=== PATIENT | male | born 1935 | race African-American/Black ===

== ENCOUNTER 2016-06-04 18:03 | Inpatient (IN) | payer MEDICARE, BC ==
[~2016-06-04] VITALS: Ht 180.3 cm; Wt 81.2 kg
[~2016-06-04 18:03] MED LIST: AMIO100T4 PO; AMLO1TAB31 PO; ASPI-1035 PO; CARV3.1242 PO; CLOP75TA2 PO; EZET10TA PO; LIP40 PO; POTA10TA69 PO; WARF3TAB28 PO; hctz PO
[2016-06-04] MEDS ORDERED: MAGNESIUM/ALUMINUM HYDROXIDE/SIMETHICONE 30ML UDC PO PRN ×2 (19:15→20:45)
[2016-06-04] MEDS ORDERED: DIPHENHYDRAMINE 50MG/ML VIAL IV PRN (19:15)
[2016-06-04] MEDS ORDERED: ACETAMINOPHEN 325MG TABLET PO PRN (19:15)
[2016-06-04] MEDS ORDERED: ONDANSETRON HCL 4MG/2ML VIAL IV PRN (19:15)
[2016-06-04] MEDS ORDERED: THROAT LOZENGES-BENZOCAINE/MENTH/CETYLPYRD CL LOZENGES MM PRN (19:15)
[2016-06-04] MEDS ORDERED: VISCOUS LIDOCAINE 2% 15 ML UDC MM PRN (19:15)
[2016-06-04] MEDS ORDERED: IPRATROPIUM BROMIDE (0.02%) 0.5MG/2.5ML NEB HHN PRN (19:15)
[2016-06-04] MEDS ORDERED: LIDOCAINE HCL 20 MG/ML 100ML BOTTLE MM PRN (19:25)
[2016-06-04 19:45] VITALS: BP 112/64
[2016-06-04 20:21] VITALS: BP 112/64
[2016-06-04] MEDS: ATORVASTATIN CALCIUM 40MG TABLET PO SCH (20:39)
[2016-06-04] MEDS: IPRATROPIUM/ALBUTEROL 0.5-3(2.5)MG/3ML NEB HHN SCH (20:56)
[2016-06-04] MEDS ORDERED: FUROSEMIDE 40MG TABLET PO SCH (21:00)
[2016-06-05] MEDS: IPRATROPIUM/ALBUTEROL 0.5-3(2.5)MG/3ML NEB HHN SCH ×6 (00:35→21:15)
[2016-06-05 06:36] LABS: HEMATOCRIT. 34.8 % (42.0-52.0); HEMOGLOBIN. 11.5 g/dL (14.0-18.0); MEAN CORPUSCULAR HEMOGLOBIN 33.3 pg (28.0-32.0); MEAN CORPUSCULAR HGB CONC 33.2 g/dL (31.0-37.0); MEAN CORPUSCULAR VOLUME 100.4 fL (80.0-94.0); MEAN PLATELET VOLUME 8.4 fl (7.4-10.4); PLATELET 135 x1000/uL (130-400); RED BLOOD CELL COUNT 3.47 mill/uL (4.7-6.1); RED CELL DISTRIBUTION WIDTH 14.1 % (11.6-14.6)
[2016-06-05 07:07] LABS: DIFFERENTIAL COMMENT 1
[2016-06-05 07:19] LABS: ALANINE AMINOTRANSFERASE 28 IU/L (13-61); ALBUMIN 2.9 g/dL (3.4-5.0); ANION GAP 14; CALCIUM 8.3 mg/dL (8.5-10.1); CARBON DIOXIDE 30 mEq/L (21-32); CHLORIDE 100 mEq/L (98-107); INDEX HEMOLYSI 1 (1-3); INDEX ICTERIC 1 (1-4); INDEX LIPEMIC 1 (1-3); PREALBUMIN 15.7 mg/dL (20.0-40.0); UREA NITROGEN BLOOD 31 mg/dL (7-21)
[2016-06-05 07:27] LABS: eGFR 51 mL/min (>60)
[2016-06-05 07:57] VITALS: BP 109/76
[2016-06-05] MEDS: ENOXAPARIN 60MG/0.6ML SYR SUBCUT SCH (08:24)
[2016-06-05] MEDS: FUROSEMIDE 40MG TABLET PO SCH ×2 (08:25→21:39)
[2016-06-05] MEDS: DOCUSATE SODIUM 100MG CAPSULE PO SCH ×2 (08:25→17:25)
[2016-06-05] MEDS: EZETIMIBE 10MG TABLET PO SCH (08:25)
[2016-06-05] MEDS: CALCIUM CARBONATE 1250MG TABLET (500MG ELEMENTAL CALCIUM) PO SCH (08:25)
[2016-06-05] MEDS: ASPIRIN 81MG TABLET PO SCH (08:25)
[2016-06-05] MEDS: AMLODIPINE 5MG TABLET PO SCH (08:25)
[2016-06-05] MEDS: POTASSIUM CHLORIDE 20MEQ TABLET SR PO SCH (08:25)
[2016-06-05] MEDS: LOSARTAN POTASSIUM 25 MG TABLET PO SCH (08:25)
[2016-06-05] MEDS: AMIODARONE HCL 200 MG TABLET PO SCH (08:25)
[2016-06-05] MEDS ORDERED: DOCUSATE SODIUM 100MG CAPSULE PO SCH (09:00)
[2016-06-05 14:53] LABS: PLATELET ESTIMATE NORMAL
[2016-06-05] MEDS: GUAIFENESIN-DM 200MG-20MG/10ML UDC PO PRN (17:25)
[2016-06-05 20:00] VITALS: BP 114/64
[2016-06-05] MEDS: CARVEDILOL 6.25 MG TABLET PO SCH (21:00)
[2016-06-05] MEDS: ATORVASTATIN CALCIUM 40MG TABLET PO SCH (21:39)
[2016-06-06] MEDS: IPRATROPIUM/ALBUTEROL 0.5-3(2.5)MG/3ML NEB HHN SCH ×6 (00:54→20:56)
[2016-06-06 08:00] VITALS: BP 121/78
[2016-06-06] MEDS: AMIODARONE HCL 200 MG TABLET PO SCH (08:47)
[2016-06-06] MEDS: ASPIRIN 81MG TABLET PO SCH (08:47)
[2016-06-06] MEDS: CALCIUM CARBONATE 1250MG TABLET (500MG ELEMENTAL CALCIUM) PO SCH (08:47)
[2016-06-06] MEDS: LOSARTAN POTASSIUM 25 MG TABLET PO SCH (08:47)
[2016-06-06] MEDS: POTASSIUM CHLORIDE 20MEQ TABLET SR PO SCH (08:47)
[2016-06-06] MEDS: EZETIMIBE 10MG TABLET PO SCH (08:47)
[2016-06-06] MEDS: AMLODIPINE 5MG TABLET PO SCH (08:47)
[2016-06-06] MEDS: FUROSEMIDE 40MG TABLET PO SCH ×2 (08:47→20:39)
[2016-06-06] MEDS: ENOXAPARIN 60MG/0.6ML SYR SUBCUT SCH (08:47)
[2016-06-06] MEDS: DOCUSATE SODIUM 100MG CAPSULE PO SCH ×2 (08:47→17:49)
[2016-06-06] MEDS: CARVEDILOL 6.25 MG TABLET PO SCH ×2 (08:48→20:39)
[2016-06-06 20:00] VITALS: BP 114/62
[2016-06-06] MEDS: ATORVASTATIN CALCIUM 40MG TABLET PO SCH (20:39)
[2016-06-06] MEDS: GUAIFENESIN-DM 200MG-20MG/10ML UDC PO PRN (20:39)
[2016-06-07] MEDS: IPRATROPIUM/ALBUTEROL 0.5-3(2.5)MG/3ML NEB HHN SCH ×3 (00:13→21:08)
[2016-06-07 07:55] LABS: EOSINOPHILS % 1.3 % (0.0-5.0); HEMATOCRIT. 35.2 % (42.0-52.0); HEMOGLOBIN. 11.5 g/dL (14.0-18.0); LYMPHOCYTES % 13.7 % (20.0-50.0); MEAN CORPUSCULAR HGB CONC 32.8 g/dL (31.0-37.0); MEAN CORPUSCULAR VOLUME 100.6 fL (80.0-94.0); MEAN PLATELET VOLUME 8.8 fl (7.4-10.4); MONOCYTES % 17.7 % (2.0-8.0); NEUTROPHILS % 66.3 % (40.0-76.0); PLATELET 128 x1000/uL (130-400); RED CELL DISTRIBUTION WIDTH 14.1 % (11.6-14.6); WHITE BLOOD COUNT 4.2 x1000/uL (4.5-11.0)
[2016-06-07 07:57] LABS: DIFFERENTIAL COMMENT 1
[2016-06-07 08:00] VITALS: BP 127/81
[2016-06-07 08:30] LABS: FERRITIN 140 ng/mL (22-322)
[2016-06-07 08:32] LABS: CALCIUM 8.3 mg/dL (8.5-10.1); MAGNESIUM 2.2 mg/dL (1.8-2.4); PHOSPHORUS 3.4 mg/dL (2.5-4.9)
[2016-06-07 08:33] LABS: THYROID STIMULATING HORMONE 7.7 uIU/mL (0.36-3.74)
[2016-06-07] MEDS: CALCIUM CARBONATE 1250MG TABLET (500MG ELEMENTAL CALCIUM) PO SCH (09:20)
[2016-06-07] MEDS: FUROSEMIDE 40MG TABLET PO SCH ×2 (09:20→20:37)
[2016-06-07] MEDS: POTASSIUM CHLORIDE 20MEQ TABLET SR PO SCH (09:20)
[2016-06-07] MEDS: CARVEDILOL 6.25 MG TABLET PO SCH ×2 (09:20→20:37)
[2016-06-07] MEDS: ASPIRIN 81MG TABLET PO SCH (09:21)
[2016-06-07] MEDS: ENOXAPARIN 60MG/0.6ML SYR SUBCUT SCH (09:21)
[2016-06-07] MEDS: AMIODARONE HCL 200 MG TABLET PO SCH (09:21)
[2016-06-07] MEDS: AMLODIPINE 5MG TABLET PO SCH (09:21)
[2016-06-07] MEDS: EZETIMIBE 10MG TABLET PO SCH (09:21)
[2016-06-07] MEDS: DOCUSATE SODIUM 100MG CAPSULE PO SCH ×2 (09:21→17:34)
[2016-06-07] MEDS: LOSARTAN POTASSIUM 25 MG TABLET PO SCH (09:21)
[2016-06-07 09:45] LABS: INDEX HEMOLYSI 2 (1-3)
[2016-06-07 10:01] LABS: VITAMIN B12 SERUM 1156 pg/mL (211-911)
[2016-06-07 10:32] LABS: FOLIC ACID (FOLATE) SERUM > 20.00 ng/mL (>5.38)
[2016-06-07 20:00] VITALS: BP 109/62
[2016-06-07] MEDS: ATORVASTATIN CALCIUM 40MG TABLET PO SCH (20:37)
[2016-06-08] MEDS: IPRATROPIUM/ALBUTEROL 0.5-3(2.5)MG/3ML NEB HHN SCH ×6 (00:51→21:53)
[2016-06-08 08:00] VITALS: BP 109/70
[2016-06-08 08:52] LABS: T3 FREE 1.24 pg/ml (2.18-3.98); T4 FREE 1.34 ng/dL (0.76-1.46)
[2016-06-08] MEDS: CARVEDILOL 6.25 MG TABLET PO SCH ×2 (09:00→20:33)
[2016-06-08] MEDS: AMLODIPINE 5MG TABLET PO SCH (09:00)
[2016-06-08] MEDS: LOSARTAN POTASSIUM 25 MG TABLET PO SCH (09:00)
[2016-06-08] MEDS: DOCUSATE SODIUM 100MG CAPSULE PO SCH ×2 (09:11→17:59)
[2016-06-08] MEDS: POTASSIUM CHLORIDE 20MEQ TABLET SR PO SCH (09:11)
[2016-06-08] MEDS: FUROSEMIDE 40MG TABLET PO SCH ×2 (09:11→20:33)
[2016-06-08] MEDS: ASPIRIN 81MG TABLET PO SCH (09:12)
[2016-06-08] MEDS: CALCIUM CARBONATE 1250MG TABLET (500MG ELEMENTAL CALCIUM) PO SCH (09:12)
[2016-06-08] MEDS: ENOXAPARIN 60MG/0.6ML SYR SUBCUT SCH (09:12)
[2016-06-08] MEDS: AMIODARONE HCL 200 MG TABLET PO SCH (09:12)
[2016-06-08] MEDS: EZETIMIBE 10MG TABLET PO SCH (09:12)
[2016-06-08] MEDS: ATORVASTATIN CALCIUM 40MG TABLET PO SCH (20:33)
[2016-06-08 20:45] VITALS: BP 119/61
[2016-06-09] MEDS: IPRATROPIUM/ALBUTEROL 0.5-3(2.5)MG/3ML NEB HHN SCH ×6 (01:42→21:08)
[2016-06-09 06:39] LABS: HEMATOCRIT. 33.7 % (42.0-52.0); HEMOGLOBIN. 11.2 g/dL (14.0-18.0); MEAN CORPUSCULAR HEMOGLOBIN 33.1 pg (28.0-32.0); MEAN CORPUSCULAR HGB CONC 33.2 g/dL (31.0-37.0); MEAN CORPUSCULAR VOLUME 99.8 fL (80.0-94.0); PLATELET 166 x1000/uL (130-400); RED BLOOD CELL COUNT 3.38 mill/uL (4.7-6.1); RED CELL DISTRIBUTION WIDTH 13.7 % (11.6-14.6); WHITE BLOOD COUNT 4.5 x1000/uL (4.5-11.0)
[2016-06-09 07:05] LABS: CALCIUM 8.4 mg/dL (8.5-10.1)
[2016-06-09 07:08] LABS: DIFFERENTIAL COMMENT 1
[2016-06-09 08:00] VITALS: BP 123/76
[2016-06-09] MEDS: ASPIRIN 81MG TABLET PO SCH (08:12)
[2016-06-09] MEDS: CARVEDILOL 6.25 MG TABLET PO SCH ×2 (08:12→21:00)
[2016-06-09] MEDS: POTASSIUM CHLORIDE 20MEQ TABLET SR PO SCH (08:12)
[2016-06-09] MEDS: DOCUSATE SODIUM 100MG CAPSULE PO SCH ×2 (08:13→17:13)
[2016-06-09] MEDS: LOSARTAN POTASSIUM 25 MG TABLET PO SCH (08:13)
[2016-06-09] MEDS: FUROSEMIDE 40MG TABLET PO SCH ×2 (08:13→21:16)
[2016-06-09] MEDS: CALCIUM CARBONATE 1250MG TABLET (500MG ELEMENTAL CALCIUM) PO SCH (08:13)
[2016-06-09] MEDS: EZETIMIBE 10MG TABLET PO SCH (08:13)
[2016-06-09] MEDS: AMLODIPINE 5MG TABLET PO SCH (08:13)
[2016-06-09] MEDS: AMIODARONE HCL 200 MG TABLET PO SCH (08:16)
[2016-06-09] MEDS: ENOXAPARIN 60MG/0.6ML SYR SUBCUT SCH (08:26)
[2016-06-09 10:07] LABS: PLATELET ESTIMATE NORMAL
[2016-06-09] MEDS ORDERED: WARFARIN SODIUM 3MG TABLET PO SCH (18:00)
[2016-06-09 20:00] VITALS: BP 126/73
[2016-06-09] MEDS: ATORVASTATIN CALCIUM 40MG TABLET PO SCH (21:16)
[2016-06-10] MEDS: IPRATROPIUM/ALBUTEROL 0.5-3(2.5)MG/3ML NEB HHN SCH ×6 (01:29→20:20)
[2016-06-10 07:00] LABS: INR 1.3; PROTHROMBIN TIME 13.7 sec
[2016-06-10 07:06] LABS: HEMATOCRIT. 33.2 % (42.0-52.0); MEAN CORPUSCULAR HEMOGLOBIN 32.7 pg (28.0-32.0); MEAN CORPUSCULAR HGB CONC 33.2 g/dL (31.0-37.0); MEAN CORPUSCULAR VOLUME 98.6 fL (80.0-94.0); MEAN PLATELET VOLUME 8.2 fl (7.4-10.4); PLATELET 173 x1000/uL (130-400); RED BLOOD CELL COUNT 3.37 mill/uL (4.7-6.1); RED CELL DISTRIBUTION WIDTH 13.9 % (11.6-14.6); WHITE BLOOD COUNT 4.4 x1000/uL (4.5-11.0)
[2016-06-10 07:24] LABS: DIFFERENTIAL COMMENT 1
[2016-06-10 07:37] LABS: CALCIUM 8.6 mg/dL (8.5-10.1)
[2016-06-10 08:00] VITALS: BP 116/68
[2016-06-10] MEDS: AMLODIPINE 5MG TABLET PO SCH (08:17)
[2016-06-10] MEDS: POTASSIUM CHLORIDE 20MEQ TABLET SR PO SCH (08:17)
[2016-06-10] MEDS: DOCUSATE SODIUM 100MG CAPSULE PO SCH ×2 (08:17→17:00)
[2016-06-10] MEDS: CARVEDILOL 6.25 MG TABLET PO SCH ×2 (08:18→21:34)
[2016-06-10] MEDS: EZETIMIBE 10MG TABLET PO SCH (08:18)
[2016-06-10] MEDS: AMIODARONE HCL 200 MG TABLET PO SCH (08:18)
[2016-06-10] MEDS: CALCIUM CARBONATE 1250MG TABLET (500MG ELEMENTAL CALCIUM) PO SCH (08:18)
[2016-06-10] MEDS: FUROSEMIDE 40MG TABLET PO SCH ×2 (08:18→21:33)
[2016-06-10] MEDS: ASPIRIN 81MG TABLET PO SCH (08:18)
[2016-06-10] MEDS: ENOXAPARIN 60MG/0.6ML SYR SUBCUT SCH (08:19)
[2016-06-10] MEDS: LOSARTAN POTASSIUM 25 MG TABLET PO SCH (08:19)
[2016-06-10 14:19] LABS: PLATELET ESTIMATE NORMAL
[2016-06-10] MEDS ORDERED: WARFARIN SODIUM 4MG TABLET PO SCH (18:00)
[2016-06-10 20:00] VITALS: BP 112/65
[2016-06-10] MEDS: ATORVASTATIN CALCIUM 40MG TABLET PO SCH (21:33)
[2016-06-11] MEDS: IPRATROPIUM/ALBUTEROL 0.5-3(2.5)MG/3ML NEB HHN SCH ×6 (00:56→20:44)
[2016-06-11 06:58] LABS: HEMATOCRIT. 32.6 % (42.0-52.0); HEMOGLOBIN. 10.8 g/dL (14.0-18.0); MEAN CORPUSCULAR HEMOGLOBIN 32.7 pg (28.0-32.0); MEAN CORPUSCULAR HGB CONC 33.1 g/dL (31.0-37.0); MEAN CORPUSCULAR VOLUME 98.9 fL (80.0-94.0); MEAN PLATELET VOLUME 8.3 fl (7.4-10.4); PLATELET 180 x1000/uL (130-400); RED CELL DISTRIBUTION WIDTH 13.8 % (11.6-14.6); WHITE BLOOD COUNT 4.6 x1000/uL (4.5-11.0)
[2016-06-11 07:04] LABS: INR 1.3; PROTHROMBIN TIME 13.8 sec
[2016-06-11 07:33] LABS: ALANINE AMINOTRANSFERASE 28 IU/L (13-61); CALCIUM 8.5 mg/dL (8.5-10.1); CHLORIDE 101 mEq/L (98-107); INDEX HEMOLYSI 1 (1-3); INDEX ICTERIC 1 (1-4); INDEX LIPEMIC 1 (1-3); MAGNESIUM 2.2 mg/dL (1.8-2.4); UREA NITROGEN BLOOD 35 mg/dL (7-21); eGFR 59 mL/min (>60)
[2016-06-11 07:34] LABS: ALBUMIN 2.9 g/dL (3.4-5.0); ANION GAP 10; CARBON DIOXIDE 31 mEq/L (21-32)
[2016-06-11 08:00] VITALS: BP 129/84
[2016-06-11 08:20] LABS: DIFFERENTIAL COMMENT 1
[2016-06-11] MEDS: CALCIUM CARBONATE 1250MG TABLET (500MG ELEMENTAL CALCIUM) PO SCH (08:20)
[2016-06-11] MEDS: POTASSIUM CHLORIDE 20MEQ TABLET SR PO SCH (08:20)
[2016-06-11] MEDS: DOCUSATE SODIUM 100MG CAPSULE PO SCH ×2 (08:21→17:07)
[2016-06-11] MEDS: EZETIMIBE 10MG TABLET PO SCH (08:21)
[2016-06-11] MEDS: CARVEDILOL 6.25 MG TABLET PO SCH ×2 (08:22→20:56)
[2016-06-11] MEDS: FUROSEMIDE 40MG TABLET PO SCH ×2 (08:22→20:56)
[2016-06-11] MEDS: AMIODARONE HCL 200 MG TABLET PO SCH (08:22)
[2016-06-11] MEDS: ASPIRIN 81MG TABLET PO SCH (08:22)
[2016-06-11] MEDS: LOSARTAN POTASSIUM 25 MG TABLET PO SCH (08:22)
[2016-06-11] MEDS: AMLODIPINE 5MG TABLET PO SCH (08:22)
[2016-06-11] MEDS: ENOXAPARIN 60MG/0.6ML SYR SUBCUT SCH (08:40)
[2016-06-11] MEDS ORDERED: WARFARIN SODIUM 3MG TABLET PO NR (18:00)
[2016-06-11 20:00] VITALS: BP 106/58
[2016-06-11 20:18] LABS: PLATELET ESTIMATE NORMAL
[2016-06-11 20:19] LABS: ANISOCYTOSIS 1+; GIANT PLATELETS FEW
[2016-06-11] MEDS: ATORVASTATIN CALCIUM 40MG TABLET PO SCH (20:56)
[2016-06-12] MEDS: IPRATROPIUM/ALBUTEROL 0.5-3(2.5)MG/3ML NEB HHN SCH ×4 (00:30→12:20)
[2016-06-12 06:27] LABS: INR 1.3
[2016-06-12 07:37] LABS: ALANINE AMINOTRANSFERASE 28 IU/L (13-61); ALBUMIN 2.9 g/dL (3.4-5.0); ANION GAP 9; CALCIUM 8.3 mg/dL (8.5-10.1); CARBON DIOXIDE 31 mEq/L (21-32); CHLORIDE 103 mEq/L (98-107); INDEX HEMOLYSI 1 (1-3); INDEX ICTERIC 1 (1-4); INDEX LIPEMIC 1 (1-3); UREA NITROGEN BLOOD 38 mg/dL (7-21); eGFR 51 mL/min (>60)
[2016-06-12 08:00] VITALS: BP 114/66
[2016-06-12] MEDS: FUROSEMIDE 40MG TABLET PO SCH (08:32)
[2016-06-12] MEDS: POTASSIUM CHLORIDE 20MEQ TABLET SR PO SCH (08:32)
[2016-06-12] MEDS: DOCUSATE SODIUM 100MG CAPSULE PO SCH (08:32)
[2016-06-12] MEDS: AMIODARONE HCL 200 MG TABLET PO SCH (08:32)
[2016-06-12] MEDS: ASPIRIN 81MG TABLET PO SCH (08:33)
[2016-06-12] MEDS: CALCIUM CARBONATE 1250MG TABLET (500MG ELEMENTAL CALCIUM) PO SCH (08:33)
[2016-06-12] MEDS: EZETIMIBE 10MG TABLET PO SCH (08:33)
[2016-06-12] MEDS: CARVEDILOL 6.25 MG TABLET PO SCH (08:33)
[2016-06-12] MEDS: ENOXAPARIN 60MG/0.6ML SYR SUBCUT SCH (08:35)
[2016-06-12] MEDS: LOSARTAN POTASSIUM 25 MG TABLET PO SCH (08:37)
[2016-06-12] MEDS: AMLODIPINE 5MG TABLET PO SCH (08:37)
[2016-06-12 11:53] VITALS: BP 114/66
[2016-06-12] MEDS ORDERED: WARFARIN SODIUM 3MG TABLET PO NR (18:00)
[2016-06-13 07:25] LABS: 25-HYDROXY VITAMIN D3 27 ng/mL (.)
== END 2016-06-12 14:00 | disposition home or self-care (01) | DRG 542 ==
PROVIDERS: ADMIT Physical Medicine & Rehabilitation Spinal Cord Injury Medicine; ATTEND Internal Medicine
DX: M48.54XA Collapsed vertebra, not elsewhere classified, thoracic region, initial encounter for fracture (principal); I50.43 Acute on chronic combined systolic (congestive) and diastolic (congestive) heart failure; I13.0 Hypertensive heart and chronic kidney disease with heart failure and stage 1 through stage 4 chronic kidney disease, or unspecified chronic kidney disease; E46 Unspecified protein-calorie malnutrition; I48.92 Unspecified atrial flutter; M48.06 Spinal stenosis, lumbar region; I25.10 Atherosclerotic heart disease of native coronary artery without angina pectoris; I73.9 Peripheral vascular disease, unspecified; I49.5 Sick sinus syndrome; H54.7 Unspecified visual loss; N18.9 Chronic kidney disease, unspecified; G89.29 Other chronic pain; I25.5 Ischemic cardiomyopathy; I48.0 Paroxysmal atrial fibrillation; D64.9 Anemia, unspecified; M51.36 Other intervertebral disc degeneration, lumbar region; J44.9 Chronic obstructive pulmonary disease, unspecified; H35.30 Unspecified macular degeneration; M54.5 Low back pain; I27.2 Other secondary pulmonary hypertension; Z95.810 Presence of automatic (implantable) cardiac defibrillator; Z95.1 Presence of aortocoronary bypass graft; Z95.5 Presence of coronary angioplasty implant and graft; Z79.01 Long term (current) use of anticoagulants; Z68.25 Body mass index [BMI] 25.0-25.9, adult; Z86.73 Personal history of transient ischemic attack (TIA), and cerebral infarction without residual deficits
CPT/HCPCS: 36415; 80048; 80053; 80061; 82306; 82607; 82728; 82746; 83036; 83540; 83550; 83735; 84100; 84134; 84439; 84443; 84481; 84630; 85025; 85610; 93005; 93970; 94640; 97110; 97112; 97116; 97150; 97162; 97166; 97530; 97535; J1650; J7030; J7620

== ENCOUNTER 2016-08-07 13:27 | Emergency (ER) | payer MEDICARE, BC ==
[~2016-08-07] VITALS: Ht 180.3 cm; Wt 82.0 kg
[~2016-08-07 13:27] MED LIST changes: -AMIO100T4 PO; +AMIO200T39 PO; -AMLO1TAB31 PO; -ASPI-1035 PO; +ASPI-1158 PO; +ATOR40TA70 PO; -CARV3.1242 PO; +CARV6.2548 PO; -CLOP75TA2 PO; -EZET10TA PO; +EZET10TA26 PO; +FURO40TA5 PO; -LIP40 PO; -POTA10TA69 PO; +POTA20TA82 PO; +VALS160T23 PO; -WARF3TAB28 PO; -hctz PO
[2016-08-07] MEDS ORDERED: KETOROLAC 30MG/ML VIAL IV ONE (14:45)
[2016-08-07 17:30] VITALS: BP 139/78
== END 2016-08-07 18:49 | disposition home or self-care (01) ==
LOC: ER 14:10
DX: S22.41XA Multiple fractures of ribs, right side, initial encounter for closed fracture (principal); I10 Essential (primary) hypertension; I25.10 Atherosclerotic heart disease of native coronary artery without angina pectoris; Z95.1 Presence of aortocoronary bypass graft; Z79.82 Long term (current) use of aspirin; W18.30XA Fall on same level, unspecified, initial encounter; Y93.89 Activity, other specified; Y92.009 Unspecified place in unspecified non-institutional (private) residence as the place of occurrence of the external cause; Y99.9 Unspecified external cause status
CPT/HCPCS: 71101; 96374; 99284; J1885

== ENCOUNTER → 2016-10-14 | Outpatient (CLI) | payer MEDICARE, BC ==
[~2016-10-14] MED LIST changes: +LIDOCAINE HCL/PF 1% 2ML VIAL ONE
[2016-10-14 14:28] LABS: BG BASE EXCESS -0.9 mmol/L (-2.0-2.0); BG CARBOXYHEMOGLOBIN 0.6 % (0.5-1.5); BG DEOXYHEMOGLOBIN 6.2 % (0.0-5.0); BG HCO3 ACT 23.2 mmol/L (22.0-26.0); BG METHEMOGLOBIN 0.5 % (0.0-1.5); BG OXYGEN SATURATION 93.7 % (92.0-98.5); BG OXYHEMOGLOBIN 92.7 % (94.0-97.0); BG PCO2 36.8 mmHg (35.0-45.0); BG PH 7.418 (7.350-7.450); BG SAMPLE SITE RIGHT RADIAL; BG TOTAL HEMOGLOBIN 12.3 g/dL (12.0-18.0); BG VENT MODE ROOM AIR
== END | disposition home or self-care (01) ==
LOC: LAB 13:59
PROVIDERS: ATTEND Internal Medicine Pulmonary Disease
DX: J44.9 Chronic obstructive pulmonary disease, unspecified (principal); R06.02 Shortness of breath
CPT/HCPCS: 36600; 82375; 82805; J3490

== ENCOUNTER 2017-11-23 09:36 | Emergency (ER) | payer MEDICARE, BC ==
[~2017-11-23] VITALS: Ht 188 cm; Wt 68.0 kg
[~2017-11-23 09:36] MED LIST changes: +AMI2 PO; -AMIO200T39 PO; +AMLO2.5T45 MT; +FERR236T3 MT; +LEVO88TA7 MT; -LIDOCAINE HCL/PF 1% 2ML VIAL ONE; -VALS160T23 PO; +VALS160T28 PO; +WARF1TAB85 MT; +WARF3TAB58 MT
[2017-11-23 11:13] LABS: HEMATOCRIT. 35.2 % (42.0-52.0); HEMOGLOBIN. 11.6 g/dL (14.0-18.0); MEAN CORPUSCULAR VOLUME 97.1 fL (80.0-94.0); MEAN PLATELET VOLUME 7.6 fl (7.4-10.4); PLATELET 240 x1000/uL (130-400); RED BLOOD CELL COUNT 3.62 mill/uL (4.7-6.1)
[2017-11-23 11:20] LABS: CHLORIDE 105 mEq/L (98-107)
[2017-11-23 11:44] LABS: PARTIAL THROMBOPLASTIN TIME 51.7 sec (23.4-31.0); PROTHROMBIN TIME 48.8 sec (9.1-11.1)
[2017-11-23 12:49] LABS: PLATELET ESTIMATE NORMAL
[2017-11-23 16:10] VITALS: BP 122/62
== END 2017-11-23 16:35 | disposition home or self-care (01) ==
LOC: ER 09:36
DX: R79.1 Abnormal coagulation profile (principal); D72.829 Elevated white blood cell count, unspecified; D64.9 Anemia, unspecified; I48.91 Unspecified atrial fibrillation; E78.00 Pure hypercholesterolemia, unspecified; I11.0 Hypertensive heart disease with heart failure; I25.10 Atherosclerotic heart disease of native coronary artery without angina pectoris; Z79.01 Long term (current) use of anticoagulants; Z95.5 Presence of coronary angioplasty implant and graft
CPT/HCPCS: 36415; 80053; 85025; 85610; 85730; 99284

== ENCOUNTER 2018-04-30 02:22 | Inpatient (IN) | payer MEDICARE, BC ==
[~2018-04-30] VITALS: Ht 180.3 cm; Wt 82.1 kg
[~2018-04-30 02:22] MED LIST changes: -LEVO88TA7 MT; +LEVO88TA7 PO
[2018-04-30 13:26] VITALS: BP 93/56
[2018-04-30 13:28] VITALS: BP 93/53
[2018-04-30] MEDS ORDERED: DEXT 5%/0.45% NACL 1000ML 1,000 ML IV SCH ×2 (14:21→22:06)
[2018-04-30] MEDS ORDERED: ACETAMINOPHEN 325MG TABLET PO PRN (14:30)
[2018-04-30] MEDS ORDERED: MAGNESIUM/ALUMINUM HYDROXIDE/SIMETHICONE 30ML UDC PO PRN (14:30)
[2018-04-30] MEDS ORDERED: ONDANSETRON HCL 4MG/2ML INJ IV PRN (14:30)
[2018-04-30] MEDS ORDERED: CLONIDINE 0.1MG TABLET PO PRN (14:30)
[2018-04-30 16:00] VITALS: BP 97/58
[2018-04-30 18:32] VITALS: BP 88/56
[2018-04-30 20:00] VITALS: BP 76/50
[2018-04-30 20:54] LABS: PROTHROMBIN TIME 47.5 sec (9.1-11.1)
[2018-04-30 20:59] LABS: CHLORIDE 94 mEq/L (98-107)
[2018-04-30 21:01] LABS: BASOPHILS % 0.3 % (0.0-2.0); EOSINOPHILS % 0.4 % (0.0-5.0); HEMATOCRIT. 31.4 % (42.0-52.0); HEMOGLOBIN. 10.3 g/dL (14.0-18.0); LYMPHOCYTES % 10.2 % (20.0-50.0); MEAN CORPUSCULAR HEMOGLOBIN 31.8 pg (28.0-32.0); MEAN CORPUSCULAR VOLUME 96.6 fL (80.0-94.0); MEAN PLATELET VOLUME 8.6 fl (7.4-10.4); MONOCYTES % 12.3 % (2.0-8.0); NEUTROPHILS % 76.8 % (40.0-76.0); PLATELET 256 x1000/uL (130-400); RED BLOOD CELL COUNT 3.24 mill/uL (4.7-6.1); RED CELL DISTRIBUTION WIDTH 14.5 % (11.6-14.6)
[2018-04-30 22:17] LABS: INR 4.9
[2018-05-01] VITALS (15 sets, daily range): BP systolic 84–127; BP diastolic 49–74
[2018-05-01 02:18] LABS: CLARITY URINE CLEAR (CLEAR); COLOR URINE DARK YELLOW (YELLOW); KETONES URINE NEGATIVE (NEGATIVE); LEUKOCYTE ESTERASE URINE NEGATIVE (NEGATIVE); NITRITE URINE NEGATIVE (NEGATIVE); OCCULT BLOOD URINE NEGATIVE (NEGATIVE); PROTEIN URINE 1+ (NEGATIVE); SPECIFIC GRAVITY URINE 1.015 (1.005-1.030)
[2018-05-01 06:54] LABS: PROTHROMBIN TIME 39.7 sec (9.1-11.1)
[2018-05-01 07:30] LABS: BASOPHILS % 0.3 % (0.0-2.0); EOSINOPHILS % 0.1 % (0.0-5.0); HEMATOCRIT. 31.5 % (42.0-52.0); HEMOGLOBIN. 10.5 g/dL (14.0-18.0); LYMPHOCYTES % 8.6 % (20.0-50.0); MEAN CORPUSCULAR HEMOGLOBIN 32.4 pg (28.0-32.0); MEAN CORPUSCULAR VOLUME 97.6 fL (80.0-94.0); MEAN PLATELET VOLUME 8.7 fl (7.4-10.4); MONOCYTES % 12.3 % (2.0-8.0); NEUTROPHILS % 78.7 % (40.0-76.0); PLATELET 243 x1000/uL (130-400); RED BLOOD CELL COUNT 3.23 mill/uL (4.7-6.1)
[2018-05-01 07:59] LABS: PHOSPHORUS 5.4 mg/dL (2.5-4.9)
[2018-05-01 12:25] LABS: HEPATITIS B SURFACE ANTIGEN NEGATIVE
[2018-05-01 12:55] LABS: HEPATITIS A AB IGM NEGATIVE (NEGATIVE)
[2018-05-01] MEDS ORDERED: ALBUMIN HUMAN 25GM/100ML (25%) IV NR (15:15)
[2018-05-01] MEDS: CARVEDILOL 3.125 MG TABLET PO SCH (21:00)
[2018-05-02] VITALS (8 sets, daily range): BP systolic 86–95; BP diastolic 46–57
[2018-05-02 07:13] LABS: INR 3.3; PROTHROMBIN TIME 32.7 sec (9.1-11.1)
[2018-05-02 07:20] LABS: PHOSPHORUS 4.2 mg/dL (2.5-4.9)
[2018-05-02 07:25] LABS: HEMATOCRIT. 30.3 % (42.0-52.0); MEAN PLATELET VOLUME 8.1 fl (7.4-10.4); PLATELET 201 x1000/uL (130-400); RED BLOOD CELL COUNT 3.13 mill/uL (4.7-6.1); RED CELL DISTRIBUTION WIDTH 13.7 % (11.6-14.6)
[2018-05-02] MEDS: CARVEDILOL 3.125 MG TABLET PO SCH ×2 (08:42→21:00)
[2018-05-02 11:01] LABS: PLATELET ESTIMATE NORMAL
[2018-05-02] MEDS: LEVOTHYROXINE SODIUM 100MCG TABLET PO SCH (11:17)
[2018-05-02 13:35] LABS: INR 3.5; PROTHROMBIN TIME 34.7 sec (9.1-11.1)
[2018-05-03] VITALS (7 sets, daily range): BP systolic 77–98; BP diastolic 48–62
[2018-05-03 06:43] LABS: HEMATOCRIT. 30.4 % (42.0-52.0); HEMOGLOBIN. 9.8 g/dL (14.0-18.0); MEAN CORPUSCULAR HEMOGLOBIN 31.9 pg (28.0-32.0); MEAN CORPUSCULAR VOLUME 98.6 fL (80.0-94.0); MEAN PLATELET VOLUME 8.2 fl (7.4-10.4); PLATELET 167 x1000/uL (130-400); RED BLOOD CELL COUNT 3.08 mill/uL (4.7-6.1); RED CELL DISTRIBUTION WIDTH 14.2 % (11.6-14.6)
[2018-05-03 07:32] LABS: INR 3.1; PROTHROMBIN TIME 30.8 sec (9.1-11.1)
[2018-05-03] MEDS: LEVOTHYROXINE SODIUM 100MCG TABLET PO SCH (08:34)
[2018-05-03] MEDS: CARVEDILOL 3.125 MG TABLET PO SCH ×2 (08:38→21:00)
[2018-05-03 13:16] LABS: PLATELET ESTIMATE NORMAL
[2018-05-03] MEDS: MIDODRINE HCL 2.5MG TABLET PO SCH ×2 (14:54→21:12)
[2018-05-04] VITALS: BP 110/56
[2018-05-04 04:00] VITALS: BP 110/60
[2018-05-04 06:41] LABS: BASOPHILS % 0.3 % (0.0-2.0); EOSINOPHILS % 0.9 % (0.0-5.0); HEMATOCRIT. 29.8 % (42.0-52.0); HEMOGLOBIN. 9.9 g/dL (14.0-18.0); LYMPHOCYTES % 8.3 % (20.0-50.0); MEAN CORPUSCULAR HEMOGLOBIN 32.4 pg (28.0-32.0); MEAN CORPUSCULAR VOLUME 97.9 fL (80.0-94.0); MEAN PLATELET VOLUME 8.2 fl (7.4-10.4); NEUTROPHILS % 76.5 % (40.0-76.0); PLATELET 165 x1000/uL (130-400); RED BLOOD CELL COUNT 3.04 mill/uL (4.7-6.1); RED CELL DISTRIBUTION WIDTH 14.4 % (11.6-14.6)
[2018-05-04 06:45] LABS: INR 3.1; PROTHROMBIN TIME 30.8 sec (9.1-11.1)
[2018-05-04 07:08] LABS: PHOSPHORUS 3.9 mg/dL (2.5-4.9)
[2018-05-04] MEDS: LEVOTHYROXINE SODIUM 100MCG TABLET PO SCH (07:57)
[2018-05-04] MEDS: MIDODRINE HCL 2.5MG TABLET PO SCH ×3 (07:57→21:33)
[2018-05-04 08:00] VITALS: BP 87/51
[2018-05-04] MEDS: CARVEDILOL 3.125 MG TABLET PO SCH ×2 (09:00→21:00)
[2018-05-04 09:06] LABS: COMPLEMENT C3 74 mg/dL (82-167)
[2018-05-04 12:00] VITALS: BP 84/49
[2018-05-04 16:00] VITALS: BP 86/49
[2018-05-04 19:06] LABS: ANTI-NUCLEAR ANTIBODIES DIRECT Negative (Negative)
[2018-05-04 20:00] VITALS: BP 96/46
[2018-05-05] VITALS (9 sets, daily range): BP systolic 87–105; BP diastolic 49–88
[2018-05-05] MEDS: MIDODRINE HCL 2.5MG TABLET PO SCH ×3 (05:21→20:58)
[2018-05-05 06:58] LABS: INR 2.8; PROTHROMBIN TIME 27.4 sec (9.1-11.1)
[2018-05-05 07:16] LABS: BASOPHILS % 0.3 % (0.0-2.0); EOSINOPHILS % 1.2 % (0.0-5.0); HEMATOCRIT. 32.3 % (42.0-52.0); HEMOGLOBIN. 10.5 g/dL (14.0-18.0); LYMPHOCYTES % 9.6 % (20.0-50.0); MEAN CORPUSCULAR HEMOGLOBIN 32.1 pg (28.0-32.0); MEAN CORPUSCULAR VOLUME 98.8 fL (80.0-94.0); MEAN PLATELET VOLUME 8.4 fl (7.4-10.4); MONOCYTES % 12.8 % (2.0-8.0); NEUTROPHILS % 76.1 % (40.0-76.0); PLATELET 185 x1000/uL (130-400); RED BLOOD CELL COUNT 3.27 mill/uL (4.7-6.1); RED CELL DISTRIBUTION WIDTH 14.5 % (11.6-14.6)
[2018-05-05] MEDS: FOLIC ACID/VITAMIN B COMP W-C TABLET PO SCH (08:49)
[2018-05-05] MEDS: LEVOTHYROXINE SODIUM 100MCG TABLET PO SCH (08:49)
[2018-05-05] MEDS: CARVEDILOL 3.125 MG TABLET PO SCH ×2 (08:49→20:36)
[2018-05-05 12:39] LABS: T4 FREE 0.83 ng/dL (0.76-1.46)
[2018-05-05] MEDS ORDERED: PHYTONADIONE 5 MG/5ML ORAL SYRINGE PO NR (18:00)
[2018-05-05] MEDS ORDERED: EPOETIN ALFA 4000UNITS/ML VIAL SUBCUT SCH (21:00)
[2018-05-06] VITALS (8 sets, daily range): BP systolic 91–99; BP diastolic 53–65
[2018-05-06] MEDS: MIDODRINE HCL 2.5MG TABLET PO SCH ×3 (04:57→21:19)
[2018-05-06 06:50] LABS: HEMATOCRIT. 28.9 % (42.0-52.0); HEMOGLOBIN. 9.7 g/dL (14.0-18.0); MEAN CORPUSCULAR HEMOGLOBIN 32.7 pg (28.0-32.0); MEAN CORPUSCULAR VOLUME 97.7 fL (80.0-94.0); MEAN PLATELET VOLUME 8.4 fl (7.4-10.4); PLATELET 140 x1000/uL (130-400); RED BLOOD CELL COUNT 2.96 mill/uL (4.7-6.1); RED CELL DISTRIBUTION WIDTH 14.5 % (11.6-14.6)
[2018-05-06 07:13] LABS: INR 2.1; PROTHROMBIN TIME 21.3 sec (9.1-11.1)
[2018-05-06 08:00] LABS: CHLORIDE 105 mEq/L (98-107)
[2018-05-06] MEDS: LEVOTHYROXINE SODIUM 100MCG TABLET PO SCH (08:30)
[2018-05-06] MEDS: FOLIC ACID/VITAMIN B COMP W-C TABLET PO SCH (08:31)
[2018-05-06] MEDS: CARVEDILOL 3.125 MG TABLET PO SCH ×2 (09:00→20:05)
[2018-05-06 09:09] LABS: ALBUMIN 3.2 g/dL (2.9-4.4); ALPHA-1-GLOBULIN 0.3 g/dL (0.0-0.4); ALPHA-2-GLOBULIN 0.6 g/dL (0.4-1.0); BETA GLOBULIN 0.9 g/dL (0.7-1.3); GAMMA GLOBULINS 1.5 g/dL (0.4-1.8); GLOBULIN TOTAL 3.2 g/dL (2.2-3.9); M-SPIKE Not Observed g/dL (Not Observed); TOTAL PROTEIN SERUM 6.4 g/dL (6.0-8.5)
[2018-05-06 12:47] LABS: ATYPICAL LYMPHOCYTES 1; NUCLEATED RED BLOOD CELLS 4 /100 WBC; PLATELET ESTIMATE NORMAL
[2018-05-06] MEDS ORDERED: MAGNESIUM HYDROXIDE 400MG/5ML 30ML UDC PO PRN (19:45)
[2018-05-07] VITALS (11 sets, daily range): BP systolic 93–160; BP diastolic 38–81
[2018-05-07] MEDS: MIDODRINE HCL 2.5MG TABLET PO SCH ×3 (05:36→21:48)
[2018-05-07 06:33] LABS: INR 1.7; PROTHROMBIN TIME 16.5 sec (9.1-11.1)
[2018-05-07 06:34] LABS: HEMOGLOBIN. 10.3 g/dL (14.0-18.0); MEAN CORPUSCULAR HEMOGLOBIN 32.3 pg (28.0-32.0); MEAN CORPUSCULAR VOLUME 97.9 fL (80.0-94.0); MEAN PLATELET VOLUME 8.4 fl (7.4-10.4); PLATELET 140 x1000/uL (130-400); RED BLOOD CELL COUNT 3.17 mill/uL (4.7-6.1); RED CELL DISTRIBUTION WIDTH 14.7 % (11.6-14.6)
[2018-05-07] MEDS: CARVEDILOL 3.125 MG TABLET PO SCH ×2 (09:00→21:00)
[2018-05-07] MEDS: FOLIC ACID/VITAMIN B COMP W-C TABLET PO SCH (09:08)
[2018-05-07] MEDS: LEVOTHYROXINE SODIUM 100MCG TABLET PO SCH (09:08)
[2018-05-07 09:10] LABS: GLOMERULAR BASEMENT MEMB AB 4 units (0-20)
[2018-05-07] MEDS ORDERED: LIDOCAINE HCL 1% 20ML VIAL (Pyxis) INJ ONE (10:50)
[2018-05-07] MEDS ORDERED: SODIUM BICARBONATE 4% (2.4MEQ) 5ML VIAL IV ONE (10:50)
[2018-05-07] MEDS ORDERED: CEFAZOLIN 1000MG PREMIX 50 ML IV ONE (10:51)
[2018-05-07] MEDS ORDERED: CEFAZOLIN 1000MG PREMIX 50 ML IV SCH (12:00)
[2018-05-07 15:10] LABS: ATYPICAL P-ANCA <1:20 titer (Neg:<1:20); CYTOPLASMIC C-ANCA <1:20 titer (Neg:<1:20); PERINUCLEAR P-ANCA <1:20 titer (Neg:<1:20)
[2018-05-07] MEDS ORDERED: WARFARIN SODIUM 1MG TABLET PO SCH (18:00)
[2018-05-07 18:36] LABS: INR 1.6; PROTHROMBIN TIME 15.7 sec (9.1-11.1)
[2018-05-08] VITALS: BP 100/52
[2018-05-08 04:00] VITALS: BP 94/55
[2018-05-08] MEDS: LEVOTHYROXINE SODIUM 100MCG TABLET PO SCH (06:08)
[2018-05-08] MEDS: MIDODRINE HCL 2.5MG TABLET PO SCH ×3 (06:08→21:27)
[2018-05-08 06:40] LABS: HEMATOCRIT. 29.8 % (42.0-52.0); HEMOGLOBIN. 9.9 g/dL (14.0-18.0); MEAN CORPUSCULAR HEMOGLOBIN 32.7 pg (28.0-32.0); MEAN CORPUSCULAR VOLUME 98.4 fL (80.0-94.0); MEAN PLATELET VOLUME 8.1 fl (7.4-10.4); PLATELET 106 x1000/uL (130-400); RED BLOOD CELL COUNT 3.03 mill/uL (4.7-6.1); RED CELL DISTRIBUTION WIDTH 15.1 % (11.6-14.6)
[2018-05-08 06:55] LABS: INR 1.6; PROTHROMBIN TIME 15.9 sec (9.1-11.1)
[2018-05-08 08:00] VITALS: BP 101/64
[2018-05-08] MEDS: FOLIC ACID/VITAMIN B COMP W-C TABLET PO SCH (08:30)
[2018-05-08] MEDS: CARVEDILOL 3.125 MG TABLET PO SCH ×2 (08:31→21:00)
[2018-05-08 11:18] LABS: NUCLEATED RED BLOOD CELLS 1 /100 WBC; PLATELET ESTIMATE NORMAL
[2018-05-08 12:00] VITALS: BP 92/53
[2018-05-08] MEDS: ENOXAPARIN 80MG/0.8ML SYR SUBCUT SCH (13:01)
[2018-05-08 14:11] LABS: ANTI-MYELOPEROXIDASE AB < 9.0 U/mL (0.0-9.0); ANTI-PROTEINASE 3 ABS < 3.5 U/mL (0.0-3.5)
[2018-05-08 16:09] LABS: PLATELET ESTIMATE SLIGHTLY DECREASED
[2018-05-08 18:00] VITALS: BP 88/50
[2018-05-08] MEDS ORDERED: WARFARIN SODIUM 2.5MG TABLET PO SCH (18:00)
[2018-05-08 20:00] VITALS: BP 99/58
[2018-05-09] VITALS: BP 106/64
[2018-05-09 04:00] VITALS: BP 93/48
[2018-05-09] MEDS: MIDODRINE HCL 2.5MG TABLET PO SCH ×3 (05:30→21:10)
[2018-05-09 06:42] LABS: INR 1.6; PROTHROMBIN TIME 15.6 sec (9.1-11.1)
[2018-05-09 06:57] LABS: HEMATOCRIT. 30.3 % (42.0-52.0); HEMOGLOBIN. 10.1 g/dL (14.0-18.0); MEAN CORPUSCULAR HEMOGLOBIN 32.7 pg (28.0-32.0); MEAN CORPUSCULAR VOLUME 98.3 fL (80.0-94.0); MEAN PLATELET VOLUME 8.6 fl (7.4-10.4); PLATELET 122 x1000/uL (130-400); RED BLOOD CELL COUNT 3.08 mill/uL (4.7-6.1); RED CELL DISTRIBUTION WIDTH 15.3 % (11.6-14.6)
[2018-05-09 08:00] VITALS: BP 104/60
[2018-05-09] MEDS: FOLIC ACID/VITAMIN B COMP W-C TABLET PO SCH (08:27)
[2018-05-09] MEDS: CARVEDILOL 3.125 MG TABLET PO SCH ×2 (08:28→21:00)
[2018-05-09] MEDS: LEVOTHYROXINE SODIUM 100MCG TABLET PO SCH (11:54)
[2018-05-09] MEDS: ENOXAPARIN 80MG/0.8ML SYR SUBCUT SCH (11:55)
[2018-05-09 12:00] VITALS: BP 100/61
[2018-05-09 14:09] LABS: PLATELET ESTIMATE SLIGHTLY DECREASED
[2018-05-09 16:00] VITALS: BP 103/61
[2018-05-09] MEDS ORDERED: WARFARIN SODIUM 2MG TABLET PO SCH (18:00)
[2018-05-09 20:00] VITALS: BP 91/56
[2018-05-10] VITALS: BP 90/55
[2018-05-10 04:00] VITALS: BP 96/58
[2018-05-10] MEDS: MIDODRINE HCL 2.5MG TABLET PO SCH (05:18)
[2018-05-10 06:16] LABS: INR 1.5; PROTHROMBIN TIME 15.4 sec (9.1-11.1)
[2018-05-10 08:00] VITALS: BP 95/50
[2018-05-10] MEDS: CARVEDILOL 3.125 MG TABLET PO SCH ×2 (09:00→21:12)
[2018-05-10] MEDS: LEVOTHYROXINE SODIUM 100MCG TABLET PO SCH (09:08)
[2018-05-10] MEDS: FOLIC ACID/VITAMIN B COMP W-C TABLET PO SCH (09:08)
[2018-05-10 12:00] VITALS: BP 101/62
[2018-05-10] MEDS ORDERED: COLCHICINE 0.6MG TABLET PO NR ×2 (12:00→15:00)
[2018-05-10] MEDS: MIDODRINE HCL 5MG TABLET PO SCH ×2 (14:32→22:07)
[2018-05-10] MEDS ORDERED: METHYLPREDNISOLONE SOD SUCC 40 MG/ML VIAL IV NR (15:00)
[2018-05-10 16:00] VITALS: BP 97/61
[2018-05-10] MEDS ORDERED: WARFARIN SODIUM 2.5MG TABLET PO NR (18:00)
[2018-05-10 20:00] VITALS: BP 101/61
[2018-05-11] VITALS: BP 95/60
[2018-05-11 04:00] VITALS: BP 96/58
[2018-05-11] MEDS: MIDODRINE HCL 5MG TABLET PO SCH ×3 (05:14→21:16)
[2018-05-11 05:50] LABS: INR 1.5; PROTHROMBIN TIME 14.8 sec (9.1-11.1)
[2018-05-11 05:53] LABS: HEMATOCRIT. 31.4 % (42.0-52.0); HEMOGLOBIN. 10.4 g/dL (14.0-18.0); MEAN CORPUSCULAR HEMOGLOBIN 32.7 pg (28.0-32.0); MEAN CORPUSCULAR VOLUME 99.1 fL (80.0-94.0); MEAN PLATELET VOLUME 8.9 fl (7.4-10.4); PLATELET 148 x1000/uL (130-400); RED BLOOD CELL COUNT 3.17 mill/uL (4.7-6.1); RED CELL DISTRIBUTION WIDTH 15.9 % (11.6-14.6)
[2018-05-11 08:00] VITALS: BP 100/58
[2018-05-11] MEDS: CARVEDILOL 3.125 MG TABLET PO SCH ×2 (09:00→20:53)
[2018-05-11] MEDS: LEVOTHYROXINE SODIUM 100MCG TABLET PO SCH (09:05)
[2018-05-11] MEDS: FOLIC ACID/VITAMIN B COMP W-C TABLET PO SCH (09:05)
[2018-05-11 12:00] VITALS: BP 98/46
[2018-05-11 16:00] VITALS: BP 94/64
[2018-05-11] MEDS ORDERED: WARFARIN SODIUM 5MG TABLET PO NR (18:00)
[2018-05-11 20:00] VITALS: BP 95/57
[2018-05-11 23:18] LABS: PLATELET ESTIMATE NORMAL
[2018-05-12] VITALS (8 sets, daily range): BP systolic 81–97; BP diastolic 48–58
[2018-05-12 05:49] LABS: INR 1.6; PROTHROMBIN TIME 15.5 sec (9.1-11.1)
[2018-05-12] MEDS: MIDODRINE HCL 5MG TABLET PO SCH ×2 (06:57→14:38)
[2018-05-12] MEDS: LEVOTHYROXINE SODIUM 100MCG TABLET PO SCH (06:58)
[2018-05-12] MEDS: FOLIC ACID/VITAMIN B COMP W-C TABLET PO SCH (08:45)
[2018-05-12] MEDS: CARVEDILOL 3.125 MG TABLET PO SCH ×2 (08:46→21:00)
[2018-05-12] MEDS ORDERED: WARFARIN SODIUM 5MG TABLET PO NR (18:00)
== END 2018-05-12 20:51 | DRG 673 ==
LOC: 7WST 02:22 → UNDOADMIN 12:34 → 7WST 12:34
PROVIDERS: ADMIT Internal Medicine; ATTEND Internal Medicine
PROC: 02HV33Z Insertion of Infusion Device into Superior Vena Cava, Percutaneous Approach (ICD-10-PCS; principal; 2018-05-01)
PROC: B5181ZA Fluoroscopy of Superior Vena Cava using Low Osmolar Contrast, Guidance (ICD-10-PCS; 2018-05-01)
PROC: B548ZZA Ultrasonography of Superior Vena Cava, Guidance (ICD-10-PCS; 2018-05-01)
PROC: 30233K1 Transfusion of Nonautologous Frozen Plasma into Peripheral Vein, Percutaneous Approach (ICD-10-PCS; 2018-05-01)
PROC: 5A1D70Z Performance of Urinary Filtration, Intermittent, Less than 6 Hours Per Day (ICD-10-PCS; 2018-05-01)
PROC: 5A1D70Z Performance of Urinary Filtration, Intermittent, Less than 6 Hours Per Day (ICD-10-PCS; 2018-05-02)
PROC: 5A1D70Z Performance of Urinary Filtration, Intermittent, Less than 6 Hours Per Day (ICD-10-PCS; 2018-05-05)
PROC: 0JH63XZ Insertion of Tunneled Vascular Access Device into Chest Subcutaneous Tissue and Fascia, Percutaneous Approach (ICD-10-PCS; 2018-05-07)
PROC: 02HV33Z Insertion of Infusion Device into Superior Vena Cava, Percutaneous Approach (ICD-10-PCS; 2018-05-07)
PROC: B5181ZA Fluoroscopy of Superior Vena Cava using Low Osmolar Contrast, Guidance (ICD-10-PCS; 2018-05-07)
PROC: 5A1D70Z Performance of Urinary Filtration, Intermittent, Less than 6 Hours Per Day (ICD-10-PCS; 2018-05-07)
PROC: 02PY33Z Removal of Infusion Device from Great Vessel, Percutaneous Approach (ICD-10-PCS; 2018-05-07)
PROC: 5A1D70Z Performance of Urinary Filtration, Intermittent, Less than 6 Hours Per Day (ICD-10-PCS; 2018-05-09)
PROC: 5A1D70Z Performance of Urinary Filtration, Intermittent, Less than 6 Hours Per Day (ICD-10-PCS; 2018-05-11)
DX: N17.0 Acute kidney failure with tubular necrosis (principal); I50.23 Acute on chronic systolic (congestive) heart failure; G92 Toxic encephalopathy; I13.0 Hypertensive heart and chronic kidney disease with heart failure and stage 1 through stage 4 chronic kidney disease, or unspecified chronic kidney disease; B17.9 Acute viral hepatitis, unspecified; E87.1 Hypo-osmolality and hyponatremia; I48.92 Unspecified atrial flutter; N39.0 Urinary tract infection, site not specified; I43 Cardiomyopathy in diseases classified elsewhere; I27.20 Pulmonary hypertension, unspecified; I49.9 Cardiac arrhythmia, unspecified; E78.00 Pure hypercholesterolemia, unspecified; I25.10 Atherosclerotic heart disease of native coronary artery without angina pectoris; N14.4 Toxic nephropathy, not elsewhere classified; J44.9 Chronic obstructive pulmonary disease, unspecified; E78.5 Hyperlipidemia, unspecified; I48.2 Chronic atrial fibrillation; D64.9 Anemia, unspecified; I25.5 Ischemic cardiomyopathy; E03.9 Hypothyroidism, unspecified; D69.6 Thrombocytopenia, unspecified; M10.9 Gout, unspecified; N18.3 Chronic kidney disease, stage 3 (moderate); Z79.01 Long term (current) use of anticoagulants; Z82.49 Family history of ischemic heart disease and other diseases of the circulatory system; Z87.891 Personal history of nicotine dependence; Z95.5 Presence of coronary angioplasty implant and graft; Z99.81 Dependence on supplemental oxygen; Z95.810 Presence of automatic (implantable) cardiac defibrillator; Z99.2 Dependence on renal dialysis
CPT/HCPCS: 36415; 36556; 36558; 36589; 71045; 76937; 77001; 80048; 80076; 82570; 82595; 83520; 83735; 83935; 84100; 84155; 84165; 84300; 84439; 84443; 84450; 84460; 84481; 84550; 85651; 86038; 86160; 86256; 86431; 86592; 86705; 86706; 86709; 86803; 86850; 86900; 86927; 87340; 93005; 93306; 97162; 97166; 97530; 97535; C1750; C1752; C1769; J0690; J1642; J1650; J2920; J3430; J3490; J7050; P9017; P9047

== ENCOUNTER 2018-05-12 20:57 | Inpatient (IN) | payer MEDICARE, BC ==
[~2018-05-12] VITALS: Ht 180.3 cm; Wt 81.2 kg
[2018-05-12 20:47] VITALS: BP 97/62
[2018-05-12 22:00] VITALS: BP 97/62
[2018-05-12] MEDS ORDERED: MAGNESIUM HYDROXIDE 400MG/5ML 30ML UDC PO PRN (22:15)
[2018-05-12] MEDS ORDERED: ONDANSETRON HCL 4MG/2ML INJ IV PRN (22:15)
[2018-05-12] MEDS ORDERED: CLONIDINE 0.1MG TABLET PO PRN (22:15)
[2018-05-12] MEDS ORDERED: ACETAMINOPHEN 325MG TABLET PO PRN (22:15)
[2018-05-12] MEDS ORDERED: CARVEDILOL 3.125 MG TABLET PO SCH (22:25)
[2018-05-13] MEDS: LEVOTHYROXINE SODIUM 100MCG TABLET PO SCH (06:05)
[2018-05-13 07:38] LABS: BASOPHILS % 0.3 % (0.0-2.0); EOSINOPHILS % 0.4 % (0.0-5.0); HEMATOCRIT. 31.7 % (42.0-52.0); HEMOGLOBIN. 10.3 g/dL (14.0-18.0); LYMPHOCYTES % 8.1 % (20.0-50.0); MEAN CORPUSCULAR HEMOGLOBIN 32.3 pg (28.0-32.0); MEAN CORPUSCULAR VOLUME 99.1 fL (80.0-94.0); MONOCYTES % 9.1 % (2.0-8.0); NEUTROPHILS % 82.1 % (40.0-76.0); PLATELET 187 x1000/uL (130-400); RED CELL DISTRIBUTION WIDTH 16.3 % (11.6-14.6)
[2018-05-13 07:51] LABS: CHLORIDE 103 mEq/L (98-107)
[2018-05-13 07:59] VITALS: BP 82/47
[2018-05-13] MEDS: CARVEDILOL 3.125 MG TABLET PO SCH ×2 (09:00→21:00)
[2018-05-13] MEDS: FOLIC ACID/VITAMIN B COMP W-C TABLET PO SCH (09:17)
[2018-05-13 17:29] LABS: INR 1.7; PROTHROMBIN TIME 16.6 sec (9.1-11.1)
[2018-05-13] MEDS ORDERED: WARFARIN SODIUM 5MG TABLET PO NR (19:00)
[2018-05-13 20:00] VITALS: BP 95/58
[2018-05-13] MEDS ORDERED: IPRATROPIUM/ALBUTEROL 0.5-3(2.5)MG/3ML NEB HHN PRN (22:15)
[2018-05-13] MEDS: MIDODRINE HCL 5MG TABLET PO SCH (23:03)
[2018-05-13] MEDS ORDERED: ENOXAPARIN 80MG/0.8ML SYR SUBCUT SCH (23:15)
[2018-05-14] MEDS: LEVOTHYROXINE SODIUM 100MCG TABLET PO SCH (06:10)
[2018-05-14] MEDS: MIDODRINE HCL 5MG TABLET PO SCH ×3 (06:10→21:16)
[2018-05-14 07:05] LABS: INR 2.2; PROTHROMBIN TIME 21.5 sec (9.1-11.1)
[2018-05-14 07:15] LABS: CHLORIDE 101 mEq/L (98-107)
[2018-05-14 07:25] LABS: FERRITIN 289 ng/mL (22-322); PROSTRATE SPECIFIC AG TOTAL 3.38 ng/mL (0.0-4.0)
[2018-05-14 07:27] LABS: BASOPHILS % 0.2 % (0.0-2.0); EOSINOPHILS % 0.5 % (0.0-5.0); HEMATOCRIT. 32.4 % (42.0-52.0); HEMOGLOBIN. 10.6 g/dL (14.0-18.0); LYMPHOCYTES % 7.5 % (20.0-50.0); MEAN CORPUSCULAR HEMOGLOBIN 32.2 pg (28.0-32.0); MEAN CORPUSCULAR VOLUME 98.1 fL (80.0-94.0); MEAN PLATELET VOLUME 8.6 fl (7.4-10.4); MONOCYTES % 8.6 % (2.0-8.0); NEUTROPHILS % 83.2 % (40.0-76.0); PLATELET 159 x1000/uL (130-400); RED CELL DISTRIBUTION WIDTH 15.6 % (11.6-14.6)
[2018-05-14 07:37] LABS: PHOSPHORUS 3.2 mg/dL (2.5-4.9)
[2018-05-14 07:39] LABS: TOTAL IRON BINDING CAPACITY 285 ug/dL (250-450)
[2018-05-14 08:23] VITALS: BP 100/59
[2018-05-14] MEDS: FOLIC ACID/VITAMIN B COMP W-C TABLET PO SCH (09:24)
[2018-05-14] MEDS: CARVEDILOL 3.125 MG TABLET PO SCH ×2 (09:25→21:00)
[2018-05-14 09:41] LABS: FOLIC ACID (FOLATE) SERUM >20 ng/mL ng/mL (>5.38)
[2018-05-14 09:53] LABS: VITAMIN B12 SERUM 1914 pg/mL (211-911)
[2018-05-14] MEDS ORDERED: LACTULOSE 20G/30ML UDC PO NR (12:30)
[2018-05-14] MEDS ORDERED: NA PHOS,M-B/NA PHOS,DI-BA ENEMA 118ML PR NR (12:30)
[2018-05-14] MEDS ORDERED: WARFARIN SODIUM 1MG TABLET PO NR (18:00)
[2018-05-14 20:00] VITALS: BP 101/65
[2018-05-15 06:29] LABS: BASOPHILS % 0.6 % (0.0-2.0); HEMOGLOBIN. 10.5 g/dL (14.0-18.0); INR 2.2; LYMPHOCYTES % 10.7 % (20.0-50.0); MEAN CORPUSCULAR HEMOGLOBIN 32.2 pg (28.0-32.0); MEAN CORPUSCULAR VOLUME 97.8 fL (80.0-94.0); MEAN PLATELET VOLUME 8.7 fl (7.4-10.4); MONOCYTES % 10.7 % (2.0-8.0); PLATELET 178 x1000/uL (130-400); PROTHROMBIN TIME 21.4 sec (9.1-11.1); RED BLOOD CELL COUNT 3.27 mill/uL (4.7-6.1); RED CELL DISTRIBUTION WIDTH 15.8 % (11.6-14.6)
[2018-05-15] MEDS: LEVOTHYROXINE SODIUM 100MCG TABLET PO SCH (06:55)
[2018-05-15] MEDS: MIDODRINE HCL 5MG TABLET PO SCH ×3 (06:55→21:08)
[2018-05-15 07:07] LABS: T4 FREE 0.9 ng/dL (0.76-1.46)
[2018-05-15 08:00] VITALS: BP 101/60
[2018-05-15] MEDS: CARVEDILOL 3.125 MG TABLET PO SCH ×2 (08:22→20:44)
[2018-05-15] MEDS: FOLIC ACID/VITAMIN B COMP W-C TABLET PO SCH (08:22)
[2018-05-15] MEDS ORDERED: WARFARIN SODIUM 1MG TABLET PO NR (18:00)
[2018-05-15 20:00] VITALS: BP 84/51
[2018-05-16] MEDS: MIDODRINE HCL 5MG TABLET PO SCH ×3 (05:00→21:31)
[2018-05-16 06:00] LABS: INR 2.2; PROTHROMBIN TIME 22.3 sec (9.1-11.1)
[2018-05-16] MEDS: LEVOTHYROXINE SODIUM 100MCG TABLET PO SCH (06:07)
[2018-05-16 08:00] VITALS: BP 94/52
[2018-05-16] MEDS: CARVEDILOL 3.125 MG TABLET PO SCH ×2 (08:24→21:00)
[2018-05-16] MEDS: FOLIC ACID/VITAMIN B COMP W-C TABLET PO SCH (08:24)
[2018-05-16] MEDS ORDERED: WARFARIN SODIUM 1MG TABLET PO NR (18:00)
[2018-05-16 20:00] VITALS: BP 98/58
[2018-05-17] MEDS: LEVOTHYROXINE SODIUM 100MCG TABLET PO SCH (06:04)
[2018-05-17] MEDS: MIDODRINE HCL 5MG TABLET PO SCH ×3 (06:05→21:45)
[2018-05-17 08:39] VITALS: BP 100/60
[2018-05-17 08:46] LABS: INR 2.1; PROTHROMBIN TIME 20.7 sec (9.1-11.1)
[2018-05-17] MEDS: CARVEDILOL 3.125 MG TABLET PO SCH ×2 (09:00→21:00)
[2018-05-17] MEDS: FOLIC ACID/VITAMIN B COMP W-C TABLET PO SCH (09:02)
[2018-05-17] MEDS: LEVOTHYROXINE SODIUM 100 MCG/ VIAL IV SCH ×2 (13:00→14:06)
[2018-05-17] MEDS ORDERED: WARFARIN SODIUM 1MG TABLET PO SCH (18:00)
[2018-05-17 20:00] VITALS: BP 106/65
[2018-05-18] VITALS: BP 105/65
[2018-05-18] MEDS: MIDODRINE HCL 5MG TABLET PO SCH ×3 (06:18→22:26)
[2018-05-18] MEDS: LEVOTHYROXINE SODIUM 200MCG TABLET PO SCH (06:18)
[2018-05-18 06:32] LABS: INR 2.2; PROTHROMBIN TIME 21.4 sec (9.1-11.1)
[2018-05-18 08:10] VITALS: BP 100/58
[2018-05-18] MEDS: FOLIC ACID/VITAMIN B COMP W-C TABLET PO SCH (08:49)
[2018-05-18] MEDS: CARVEDILOL 3.125 MG TABLET PO SCH ×2 (08:49→21:00)
[2018-05-18 09:48] LABS: BASOPHILS % 0.6 % (0.0-2.0); EOSINOPHILS % 0.7 % (0.0-5.0); HEMATOCRIT. 33.1 % (42.0-52.0); HEMOGLOBIN. 10.6 g/dL (14.0-18.0); LYMPHOCYTES % 12.2 % (20.0-50.0); MEAN CORPUSCULAR HEMOGLOBIN 31.8 pg (28.0-32.0); MEAN CORPUSCULAR VOLUME 99.7 fL (80.0-94.0); MEAN PLATELET VOLUME 8.4 fl (7.4-10.4); MONOCYTES % 13.7 % (2.0-8.0); NEUTROPHILS % 72.8 % (40.0-76.0); PLATELET 210 x1000/uL (130-400); RED BLOOD CELL COUNT 3.32 mill/uL (4.7-6.1); RED CELL DISTRIBUTION WIDTH 16.4 % (11.6-14.6)
[2018-05-18] MEDS ORDERED: LEVOTHYROXINE SODIUM 100 MCG/ VIAL IV NR (15:00)
[2018-05-18] MEDS ORDERED: WARFARIN SODIUM 1MG TABLET PO NR (18:00)
[2018-05-18 20:00] VITALS: BP 99/48
[2018-05-19] MEDS: LEVOTHYROXINE SODIUM 200MCG TABLET PO SCH (06:12)
[2018-05-19] MEDS: MIDODRINE HCL 5MG TABLET PO SCH ×3 (06:12→20:47)
[2018-05-19 08:00] LABS: INR 2.2; PROTHROMBIN TIME 21.4 sec (9.1-11.1)
[2018-05-19 08:48] VITALS: BP 143/99
[2018-05-19] MEDS: FOLIC ACID/VITAMIN B COMP W-C TABLET PO SCH (08:53)
[2018-05-19] MEDS: CARVEDILOL 3.125 MG TABLET PO SCH ×2 (08:54→21:00)
[2018-05-19] MEDS ORDERED: WARFARIN SODIUM 1MG TABLET PO NR (18:00)
[2018-05-19 20:00] VITALS: BP 103/63
[2018-05-20] MEDS: LEVOTHYROXINE SODIUM 200MCG TABLET PO SCH (06:08)
[2018-05-20] MEDS: MIDODRINE HCL 5MG TABLET PO SCH ×3 (06:08→21:09)
[2018-05-20 08:00] VITALS: BP 82/49
[2018-05-20] MEDS: CARVEDILOL 3.125 MG TABLET PO SCH ×2 (08:40→21:00)
[2018-05-20] MEDS: FOLIC ACID/VITAMIN B COMP W-C TABLET PO SCH (08:41)
[2018-05-20 17:11] LABS: INR 2.4; PROTHROMBIN TIME 24.1 sec (9.1-11.1)
[2018-05-20] MEDS ORDERED: WARFARIN SODIUM 1MG TABLET PO SCH (18:00)
[2018-05-20 20:00] VITALS: BP 94/55
[2018-05-21 05:57] LABS: INR 2.4; PROTHROMBIN TIME 24.1 sec (9.1-11.1)
[2018-05-21 06:09] LABS: T4 FREE 1.12 ng/dL (0.76-1.46)
[2018-05-21 06:11] LABS: BASOPHILS % 0.4 % (0.0-2.0); EOSINOPHILS % 0.3 % (0.0-5.0); HEMATOCRIT. 32.1 % (42.0-52.0); HEMOGLOBIN. 10.3 g/dL (14.0-18.0); LYMPHOCYTES % 10.8 % (20.0-50.0); MEAN CORPUSCULAR HEMOGLOBIN 32.1 pg (28.0-32.0); MEAN CORPUSCULAR VOLUME 100.5 fL (80.0-94.0); MEAN PLATELET VOLUME 8.3 fl (7.4-10.4); MONOCYTES % 14.8 % (2.0-8.0); NEUTROPHILS % 73.7 % (40.0-76.0); PLATELET 181 x1000/uL (130-400); RED CELL DISTRIBUTION WIDTH 17.4 % (11.6-14.6)
[2018-05-21] MEDS: LEVOTHYROXINE SODIUM 200MCG TABLET PO SCH (06:13)
[2018-05-21] MEDS: MIDODRINE HCL 5MG TABLET PO SCH ×3 (06:13→21:39)
[2018-05-21] MEDS: FOLIC ACID/VITAMIN B COMP W-C TABLET PO SCH (08:12)
[2018-05-21] MEDS: CARVEDILOL 3.125 MG TABLET PO SCH ×2 (08:12→21:00)
[2018-05-21 08:15] VITALS: BP 101/58
[2018-05-21] MEDS: GUAIFENESIN 200MG/10ML SUGAR FREE UDC PO PRN (13:42)
[2018-05-21] MEDS ORDERED: WARFARIN SODIUM 1MG TABLET PO SCH (18:00)
[2018-05-21 20:00] VITALS: BP 107/63
[2018-05-22] MEDS: LEVOTHYROXINE SODIUM 200MCG TABLET PO SCH (06:23)
[2018-05-22] MEDS: MIDODRINE HCL 5MG TABLET PO SCH ×2 (06:23→13:11)
[2018-05-22 06:59] LABS: INR 2.6; PROTHROMBIN TIME 25.9 sec (9.1-11.1)
[2018-05-22 08:23] VITALS: BP 95/48
[2018-05-22] MEDS: CARVEDILOL 3.125 MG TABLET PO SCH (08:40)
[2018-05-22] MEDS: FOLIC ACID/VITAMIN B COMP W-C TABLET PO SCH (08:40)
[2018-05-22 11:42] VITALS: BP 90/58
[2018-05-22] MEDS: GUAIFENESIN 200MG/10ML SUGAR FREE UDC PO PRN (13:13)
[2018-05-22] MEDS ORDERED: WARFARIN SODIUM 1MG TABLET PO SCH (18:00)
[2018-05-25 19:06] LABS: 25-HYDROXY VITAMIN D3 25 ng/mL (.)
== END 2018-05-22 14:00 | DRG 92 ==
PROVIDERS: ADMIT Physical Medicine & Rehabilitation Spinal Cord Injury Medicine; ATTEND Internal Medicine
PROC: 5A1D70Z Performance of Urinary Filtration, Intermittent, Less than 6 Hours Per Day (ICD-10-PCS; principal; 2018-05-13)
PROC: 5A1D70Z Performance of Urinary Filtration, Intermittent, Less than 6 Hours Per Day (ICD-10-PCS; 2018-05-15)
PROC: 5A1D70Z Performance of Urinary Filtration, Intermittent, Less than 6 Hours Per Day (ICD-10-PCS; 2018-05-22)
DX: G92 Toxic encephalopathy (principal); I13.0 Hypertensive heart and chronic kidney disease with heart failure and stage 1 through stage 4 chronic kidney disease, or unspecified chronic kidney disease; N17.9 Acute kidney failure, unspecified; E87.1 Hypo-osmolality and hyponatremia; E46 Unspecified protein-calorie malnutrition; N39.0 Urinary tract infection, site not specified; I48.92 Unspecified atrial flutter; M48.54XA Collapsed vertebra, not elsewhere classified, thoracic region, initial encounter for fracture; R53.81 Other malaise; M10.9 Gout, unspecified; I25.5 Ischemic cardiomyopathy; I48.2 Chronic atrial fibrillation; I25.10 Atherosclerotic heart disease of native coronary artery without angina pectoris; N18.9 Chronic kidney disease, unspecified; I50.9 Heart failure, unspecified; I95.9 Hypotension, unspecified; E03.9 Hypothyroidism, unspecified; D69.6 Thrombocytopenia, unspecified; R26.9 Unspecified abnormalities of gait and mobility; R79.89 Other specified abnormal findings of blood chemistry; R41.89 Other symptoms and signs involving cognitive functions and awareness; F06.31 Mood disorder due to known physiological condition with depressive features; S51.811A Laceration without foreign body of right forearm, initial encounter; X58.XXXA Exposure to other specified factors, initial encounter; M51.36 Other intervertebral disc degeneration, lumbar region; J44.9 Chronic obstructive pulmonary disease, unspecified; E78.5 Hyperlipidemia, unspecified; I27.22 Pulmonary hypertension due to left heart disease; E78.00 Pure hypercholesterolemia, unspecified; D64.9 Anemia, unspecified; Z68.25 Body mass index [BMI] 25.0-25.9, adult; Z95.5 Presence of coronary angioplasty implant and graft; Z87.891 Personal history of nicotine dependence; Z79.01 Long term (current) use of anticoagulants; Z95.810 Presence of automatic (implantable) cardiac defibrillator; Z82.49 Family history of ischemic heart disease and other diseases of the circulatory system; Z79.899 Other long term (current) drug therapy; Z82.3 Family history of stroke; Z99.2 Dependence on renal dialysis; Y93.89 Activity, other specified; Y92.89 Other specified places as the place of occurrence of the external cause; Y99.8 Other external cause status
CPT/HCPCS: 36415; 80048; 82306; 82533; 82607; 82728; 82746; 83540; 83550; 83735; 84100; 84134; 84153; 84439; 84443; 84481; 86376; 92508; 92523; 92610; 93970; 97110; 97116; 97150; 97163; 97166; 97530; 97535; G0515; J1650; J3490; G0103

== ENCOUNTER 2018-05-23 15:22 | Inpatient (IN) | payer MEDICARE, BC ==
[~2018-05-23] VITALS: Ht 180.3 cm; Wt 68.9 kg
[~2018-05-23 15:22] MED LIST changes: -FURO40TA5 PO; -WARF1TAB85 MT
[2018-05-23] MEDS ORDERED: ONDANSETRON HCL 4MG/2ML INJ IV STA (15:37)
[2018-05-23 16:16] LABS: BG BASE EXCESS -9.3 mmol/L (-2.0-2.0); BG CARBOXYHEMOGLOBIN 0.8 % (0.5-1.5); BG DEOXYHEMOGLOBIN 14.7 % (0.0-5.0); BG HCO3 ACT 15.7 mmol/L (22.0-26.0); BG METHEMOGLOBIN 0.3 % (0.0-1.5); BG OXYGEN SATURATION 85.1 % (92.0-98.5); BG OXYHEMOGLOBIN 84.2 % (94.0-97.0); BG PCO2 31.4 mmHg (35.0-45.0); BG PH 7.318 (7.350-7.450); BG PO2 56.5 mmHg (75.0-100.0); BG SAMPLE SITE RIGHT RADIAL; BG TOTAL HEMOGLOBIN 10.9 g/dL (12.0-18.0); BG VENT MODE NASAL CANNULA
[2018-05-23 16:21] LABS: BASOPHILS % 0.3 % (0.0-2.0); EOSINOPHILS % 0.1 % (0.0-5.0); HEMATOCRIT. 33.6 % (42.0-52.0); HEMOGLOBIN. 10.6 g/dL (14.0-18.0); LYMPHOCYTES % 8.6 % (20.0-50.0); MEAN CORPUSCULAR HEMOGLOBIN 32.7 pg (28.0-32.0); MEAN CORPUSCULAR VOLUME 103.9 fL (80.0-94.0); MEAN PLATELET VOLUME 8.6 fl (7.4-10.4); MONOCYTES % 13.2 % (2.0-8.0); NEUTROPHILS % 77.8 % (40.0-76.0); PLATELET 180 x1000/uL (130-400); RED BLOOD CELL COUNT 3.24 mill/uL (4.7-6.1); RED CELL DISTRIBUTION WIDTH 18.6 % (11.6-14.6)
[2018-05-23 16:27] LABS: CHLORIDE 104 mEq/L (98-107)
[2018-05-23 16:30] LABS: ETHANOL BLOOD < 10 mg/dL
[2018-05-23 17:58] LABS: CLARITY URINE TURBID (CLEAR); COLOR URINE DARK YELLOW (YELLOW); KETONES URINE NEGATIVE (NEGATIVE); LEUKOCYTE ESTERASE URINE 2+ (NEGATIVE); NITRITE URINE POSITIVE (NEGATIVE); OCCULT BLOOD URINE 2+ (NEGATIVE); PROTEIN URINE 2+ (NEGATIVE); SPECIFIC GRAVITY URINE 1.022 (1.005-1.030)
[2018-05-23] MEDS ORDERED: CEFTRIAXONE 1 G PREMIX 50 ML IV NR (18:45)
[2018-05-23] MEDS ORDERED: SODIUM CHLORIDE 0.9% 500 ML IV NR ×2 (18:45)
[2018-05-23] MEDS ORDERED: VANCOMYCIN 1 G PREMIX 200 ML IV NR (18:45)
[2018-05-23 18:54] LABS: *AMPHETAMINES SCREEN URINE NEGATIVE (NEGATIVE); *BARBITURATES SCREEN URINE NEGATIVE (NEGATIVE); *BENZODIAZEPINES SCREEN URINE NEGATIVE (NEGATIVE); *COCAINE SCREEN URINE NEGATIVE (NEGATIVE)
[2018-05-23 18:55] LABS: CANNABINOID URINE SCREEN NEGATIVE (NEGATIVE); METHADONE URINE SCREEN NEGATIVE (NEGATIVE); OPIATES URINE SCREEN NEGATIVE (NEGATIVE); PHENCYCLIDINE URINE SCREEN NEGATIVE (NEGATIVE)
[2018-05-23] MEDS ORDERED: ACETAMINOPHEN 325MG TABLET PO PRN (19:45)
[2018-05-23] MEDS ORDERED: ONDANSETRON HCL 4MG/2ML INJ IV PRN (19:45)
[2018-05-23] MEDS ORDERED: MAGNESIUM/ALUMINUM HYDROXIDE/SIMETHICONE 30ML UDC PO PRN (19:45)
[2018-05-23] MEDS ORDERED: DIPHENHYDRAMINE 50MG/ML VIAL IV PRN (19:45)
[2018-05-23] MEDS ORDERED: IPRATROPIUM/ALBUTEROL 0.5-3(2.5)MG/3ML NEB INH PRN (19:45)
[2018-05-23 20:02] LABS: BG BASE EXCESS -6.1 mmol/L (-2.0-2.0); BG CARBOXYHEMOGLOBIN 0.3 % (0.5-1.5); BG DEOXYHEMOGLOBIN 14.1 % (0.0-5.0); BG FRACTION INSPIRED OXYGEN 100; BG HCO3 ACT 19.1 mmol/L (22.0-26.0); BG METHEMOGLOBIN 0.4 % (0.0-1.5); BG OXYGEN SATURATION 85.8 % (92.0-98.5); BG OXYHEMOGLOBIN 85.2 % (94.0-97.0); BG PCO2 36.6 mmHg (35.0-45.0); BG PH 7.336 (7.350-7.450); BG PO2 57.3 mmHg (75.0-100.0); BG SAMPLE SITE LEFT BRACHIAL; BG TOTAL HEMOGLOBIN 10.9 g/dL (12.0-18.0); BG VENT MODE MASK - NRB
[2018-05-23 21:03] VITALS: BP 138/43
[2018-05-23] MEDS: IPRATROPIUM/ALBUTEROL 0.5-3(2.5)MG/3ML NEB HHN SCH (22:10)
[2018-05-24 04:38] LABS: BASOPHILS % 0.2 % (0.0-2.0); EOSINOPHILS % 0.1 % (0.0-5.0); HEMATOCRIT. 33.3 % (42.0-52.0); HEMOGLOBIN. 10.7 g/dL (14.0-18.0); MEAN CORPUSCULAR HEMOGLOBIN 32.6 pg (28.0-32.0); MEAN PLATELET VOLUME 8.4 fl (7.4-10.4); MONOCYTES % 14.8 % (2.0-8.0); NEUTROPHILS % 76.9 % (40.0-76.0); PLATELET 169 x1000/uL (130-400); RED BLOOD CELL COUNT 3.26 mill/uL (4.7-6.1)
[2018-05-24] MEDS: IPRATROPIUM/ALBUTEROL 0.5-3(2.5)MG/3ML NEB HHN SCH ×3 (08:30→23:58)
[2018-05-24] MEDS ORDERED: LEVOTHYROXINE SODIUM 100MCG TABLET PO NR (12:00)
[2018-05-24] MEDS ORDERED: MIDODRINE HCL 5MG TABLET PO NR (12:15)
[2018-05-24 16:43] LABS: BG BASE EXCESS -6.5 mmol/L (-2.0-2.0); BG BILEVEL POS AIRWAY PRESSURE 15/5; BG CARBOXYHEMOGLOBIN 0.4 % (0.5-1.5); BG DEOXYHEMOGLOBIN 3.8 % (0.0-5.0); BG FRACTION INSPIRED OXYGEN 100; BG HCO3 ACT 17.7 mmol/L (22.0-26.0); BG METHEMOGLOBIN 0.4 % (0.0-1.5); BG OXYGEN SATURATION 96.2 % (92.0-98.5); BG OXYHEMOGLOBIN 95.4 % (94.0-97.0); BG PH 7.374 (7.350-7.450); BG PO2 86.9 mmHg (75.0-100.0); BG SAMPLE SITE LEFT BRACHIAL; BG TOTAL HEMOGLOBIN 11.1 g/dL (12.0-18.0); BG VENT MODE MASK - BIPAP; BG VENT RATE 14 set
[2018-05-24 21:03] VITALS: BP 138/43
[2018-05-24 21:53] LABS: INR 3.3; PROTHROMBIN TIME 32.5 sec (9.1-11.1)
[2018-05-24 22:00] VITALS: BP 92/54
[2018-05-24] MEDS: SODIUM CHLORIDE 0.9% INJ 3ML FLUSH IVF SCH (22:55)
[2018-05-24] MEDS: ATORVASTATIN CALCIUM 20MG TABLET PO SCH (22:58)
[2018-05-25] VITALS (44 sets, daily range): BP systolic 74–108; BP diastolic 39–71
[2018-05-25] MEDS ORDERED: VANCOMYCIN 1 G PREMIX 200 ML IV SCH (01:30)
[2018-05-25] MEDS ORDERED: ALBUMIN HUMAN 25GM/100ML (25%) IV NR (03:30)
[2018-05-25] MEDS: IPRATROPIUM/ALBUTEROL 0.5-3(2.5)MG/3ML NEB HHN SCH ×5 (04:05→20:20)
[2018-05-25] MEDS ORDERED: VANCOMYCIN 500 MG PREMIX 100 ML IV NR (06:00)
[2018-05-25] MEDS ORDERED: PIPERACILLIN/TAZOBACTAM 2.25 G in DEXTROSE 5% WATER 50 ML IV SCH (06:00)
[2018-05-25] MEDS: PIPERACILLIN/TAZ 2.25G PREMIX 50 ML IV SCH ×2 (06:20→17:49)
[2018-05-25] MEDS: SODIUM CHLORIDE 0.9% INJ 3ML FLUSH IVF SCH ×3 (06:25→22:12)
[2018-05-25] MEDS: LEVOTHYROXINE SODIUM 100MCG TABLET PO SCH (06:29)
[2018-05-25 06:47] LABS: BG BASE EXCESS -5.1 mmol/L (-2.0-2.0); BG BILEVEL POS AIRWAY PRESSURE 15/5; BG CARBOXYHEMOGLOBIN 0.1 % (0.5-1.5); BG DEOXYHEMOGLOBIN 4.4 % (0.0-5.0); BG FRACTION INSPIRED OXYGEN 100; BG HCO3 ACT 19.6 mmol/L (22.0-26.0); BG METHEMOGLOBIN 0.1 % (0.0-1.5); BG OXYGEN SATURATION 95.6 % (92.0-98.5); BG OXYHEMOGLOBIN 95.4 % (94.0-97.0); BG PCO2 34.9 mmHg (35.0-45.0); BG PH 7.367 (7.350-7.450); BG PO2 84.1 mmHg (75.0-100.0); BG SAMPLE SITE RIGHT BRACHIAL; BG TOTAL HEMOGLOBIN 10.7 g/dL (12.0-18.0); BG VENT MODE MASK - BIPAP
[2018-05-25] MEDS ORDERED: MIDODRINE HCL 5MG TABLET PO SCH (09:00)
[2018-05-25 09:37] LABS: HEMATOCRIT. 32.3 % (42.0-52.0); HEMOGLOBIN. 10.3 g/dL (14.0-18.0); MEAN PLATELET VOLUME 8.7 fl (7.4-10.4); PLATELET 153 x1000/uL (130-400); RED BLOOD CELL COUNT 3.13 mill/uL (4.7-6.1); RED CELL DISTRIBUTION WIDTH 18.8 % (11.6-14.6)
[2018-05-25] MEDS ORDERED: FOLI0.4T2 PO (09:47)
[2018-05-25] MEDS ORDERED: MIDO5TAB PO (09:49)
[2018-05-25 09:56] LABS: CREATINE KINASE MB FRACTION 5.7 ng/mL (0.5-3.6)
[2018-05-25 10:01] LABS: D-DIMER 2.62 mg/L FEU (<0.50); INR 3.2; PROTHROMBIN TIME 31.4 sec (9.1-11.1)
[2018-05-25] MEDS: MIDODRINE HCL 5MG TABLET PO SCH ×2 (13:24→17:21)
[2018-05-25] MEDS: GUAIFENESIN 200MG/10ML SUGAR FREE UDC PO PRN (13:30)
[2018-05-25] MEDS ORDERED: DOPAMINE 400MG/250ML PREMIX 250 ML IV PRN (15:30)
[2018-05-25] MEDS ORDERED: ALBUMIN HUMAN 25GM/100ML (25%) IV SCH (15:45)
[2018-05-25 16:44] LABS: PLATELET ESTIMATE NORMAL
[2018-05-26] VITALS (44 sets, daily range): BP systolic 81–133; BP diastolic 16–96
[2018-05-26] MEDS: IPRATROPIUM/ALBUTEROL 0.5-3(2.5)MG/3ML NEB HHN SCH ×4 (00:50→22:20)
[2018-05-26] MEDS: SODIUM CHLORIDE 0.9% INJ 3ML FLUSH IVF SCH ×2 (06:28→21:53)
[2018-05-26] MEDS: PIPERACILLIN/TAZ 2.25G PREMIX 50 ML IV SCH ×2 (06:28→21:52)
[2018-05-26] MEDS: LEVOTHYROXINE SODIUM 100MCG TABLET PO SCH (06:28)
[2018-05-26 07:10] LABS: HEMATOCRIT. 30.7 % (42.0-52.0); HEMOGLOBIN. 9.9 g/dL (14.0-18.0); MEAN CORPUSCULAR HEMOGLOBIN 32.9 pg (28.0-32.0); MEAN CORPUSCULAR VOLUME 101.6 fL (80.0-94.0); MEAN PLATELET VOLUME 8.4 fl (7.4-10.4); PLATELET 143 x1000/uL (130-400); RED BLOOD CELL COUNT 3.02 mill/uL (4.7-6.1); RED CELL DISTRIBUTION WIDTH 18.6 % (11.6-14.6)
[2018-05-26 07:29] LABS: CHLORIDE 105 mEq/L (98-107)
[2018-05-26] MEDS: MIDODRINE HCL 5MG TABLET PO SCH ×3 (08:10→21:52)
[2018-05-26] MEDS: GUAIFENESIN 200MG/10ML SUGAR FREE UDC PO PRN ×3 (08:10→16:43)
[2018-05-26] MEDS: ATORVASTATIN CALCIUM 20MG TABLET PO SCH ×2 (08:32→21:52)
[2018-05-26] MEDS ORDERED: LIDOCAINE HCL 1% 20ML VIAL (Pyxis) INJ ONE (09:55)
[2018-05-26 10:53] LABS: PLATELET ESTIMATE NORMAL
[2018-05-26 11:26] LABS: BG BASE EXCESS -8.2 mmol/L (-2.0-2.0); BG CARBOXYHEMOGLOBIN 0.4 % (0.5-1.5); BG DEOXYHEMOGLOBIN 20.1 % (0.0-5.0); BG FRACTION INSPIRED OXYGEN 40; BG HCO3 ACT 16.7 mmol/L (22.0-26.0); BG METHEMOGLOBIN 0.2 % (0.0-1.5); BG OXYGEN SATURATION 79.8 % (92.0-98.5); BG OXYHEMOGLOBIN 79.3 % (94.0-97.0); BG PCO2 32.1 mmHg (35.0-45.0); BG PH 7.333 (7.350-7.450); BG PO2 48.1 mmHg (75.0-100.0); BG SAMPLE SITE RIGHT BRACHIAL; BG TOTAL HEMOGLOBIN 11.1 g/dL (12.0-18.0); BG VENT MODE NASAL CANNULA
[2018-05-26] MEDS: DOBUTAMINE 250MG PREMIX 250 ML IV SCH (14:03)
[2018-05-26 16:10] LABS: BG BASE EXCESS -6.1 mmol/L (-2.0-2.0); BG CARBOXYHEMOGLOBIN 0.3 % (0.5-1.5); BG DEOXYHEMOGLOBIN 10.8 % (0.0-5.0); BG FRACTION INSPIRED OXYGEN 100; BG METHEMOGLOBIN 0.1 % (0.0-1.5); BG OXYGEN SATURATION 89.2 % (92.0-98.5); BG OXYHEMOGLOBIN 88.8 % (94.0-97.0); BG PCO2 30.7 mmHg (35.0-45.0); BG PH 7.385 (7.350-7.450); BG SAMPLE SITE LEFT BRACHIAL; BG TOTAL HEMOGLOBIN 10.3 g/dL (12.0-18.0); BG VENT MODE VAPOTHERM
[2018-05-26 16:34] LABS: PROTHROMBIN TIME 43.3 sec (9.1-11.1)
[2018-05-26 18:22] LABS: INR 4.4
[2018-05-26] MEDS ORDERED: VANCOMYCIN 1500MG in DEXTROSE 5% WATER 250ML IV NR (21:00)
[2018-05-27] VITALS (29 sets, daily range): BP systolic 83–121; BP diastolic 37–90
[2018-05-27] MEDS: IPRATROPIUM/ALBUTEROL 0.5-3(2.5)MG/3ML NEB HHN SCH ×6 (02:10→20:22)
[2018-05-27] MEDS: PIPERACILLIN/TAZ 2.25G PREMIX 50 ML IV SCH ×2 (06:25→17:13)
[2018-05-27] MEDS: SODIUM CHLORIDE 0.9% INJ 3ML FLUSH IVF SCH ×3 (06:25→22:00)
[2018-05-27 06:33] LABS: HEMATOCRIT. 28.1 % (42.0-52.0); MEAN CORPUSCULAR HEMOGLOBIN 32.5 pg (28.0-32.0); MEAN PLATELET VOLUME 8.6 fl (7.4-10.4); PLATELET 126 x1000/uL (130-400); RED BLOOD CELL COUNT 2.78 mill/uL (4.7-6.1); RED CELL DISTRIBUTION WIDTH 18.9 % (11.6-14.6)
[2018-05-27 06:44] LABS: INR 3.8; PROTHROMBIN TIME 36.9 sec (9.1-11.1)
[2018-05-27 06:52] LABS: PHOSPHORUS 3.3 mg/dL (2.5-4.9)
[2018-05-27] MEDS ORDERED: FOLIC ACID/VITAMIN B COMP W-C TABLET PO SCH (09:00)
[2018-05-27] MEDS: FOLIC ACID/VITAMIN B COMP W-C TABLET PO SCH (09:00)
[2018-05-27] MEDS: FUROSEMIDE 40MG/4ML VIAL IVP SCH (09:00)
[2018-05-27] MEDS: DOCUSATE SODIUM 100MG CAPSULE PO SCH ×2 (09:00→17:14)
[2018-05-27] MEDS ORDERED: LEVOTHYROXINE SODIUM 100 MCG/ VIAL IV SCH (09:00)
[2018-05-27] MEDS: MIDODRINE HCL 5MG TABLET PO SCH ×3 (09:00→17:14)
[2018-05-27 12:25] LABS: BG BASE EXCESS -2.3 mmol/L (-2.0-2.0); BG CARBOXYHEMOGLOBIN 0.1 % (0.5-1.5); BG DEOXYHEMOGLOBIN 6.2 % (0.0-5.0); BG FRACTION INSPIRED OXYGEN 100; BG HCO3 ACT 22.3 mmol/L (22.0-26.0); BG METHEMOGLOBIN 0.3 % (0.0-1.5); BG OXYGEN SATURATION 93.8 % (92.0-98.5); BG OXYHEMOGLOBIN 93.4 % (94.0-97.0); BG PCO2 37.7 mmHg (35.0-45.0); BG PO2 72.7 mmHg (75.0-100.0); BG SAMPLE SITE RIGHT BRACHIAL; BG TOTAL HEMOGLOBIN 9.7 g/dL (12.0-18.0); BG VENT MODE VAPOTHERM
[2018-05-27] MEDS: DOBUTAMINE 250MG PREMIX 250 ML IV SCH (13:08)
[2018-05-27 17:06] LABS: PLATELET ESTIMATE DECREASED
[2018-05-28] VITALS (12 sets, daily range): BP systolic 87–105; BP diastolic 52–61
[2018-05-28] MEDS: ATORVASTATIN CALCIUM 20MG TABLET PO SCH ×2 (00:02→21:01)
[2018-05-28] MEDS: IPRATROPIUM/ALBUTEROL 0.5-3(2.5)MG/3ML NEB HHN SCH ×5 (00:34→21:41)
[2018-05-28] MEDS: DOBUTAMINE 250MG PREMIX 250 ML IV SCH ×2 (04:32→21:19)
[2018-05-28] MEDS: PIPERACILLIN/TAZ 2.25G PREMIX 50 ML IV SCH ×2 (05:30→17:33)
[2018-05-28] MEDS: SODIUM CHLORIDE 0.9% INJ 3ML FLUSH IVF SCH ×3 (05:30→21:01)
[2018-05-28 05:52] LABS: INR 3.6; PROTHROMBIN TIME 35.6 sec (9.1-11.1)
[2018-05-28 06:07] LABS: HEMATOCRIT. 28.9 % (42.0-52.0); HEMOGLOBIN. 9.5 g/dL (14.0-18.0); MEAN CORPUSCULAR HEMOGLOBIN 33.4 pg (28.0-32.0); MEAN CORPUSCULAR VOLUME 101.2 fL (80.0-94.0); PLATELET 105 x1000/uL (130-400); RED BLOOD CELL COUNT 2.86 mill/uL (4.7-6.1); RED CELL DISTRIBUTION WIDTH 18.2 % (11.6-14.6)
[2018-05-28] MEDS: LEVOTHYROXINE SODIUM 112MCG TABLET PO SCH (06:10)
[2018-05-28] MEDS: GUAIFENESIN 200MG/10ML SUGAR FREE UDC PO PRN ×2 (06:12→18:43)
[2018-05-28 07:37] LABS: BG BASE EXCESS -1.9 mmol/L (-2.0-2.0); BG CARBOXYHEMOGLOBIN 0.2 % (0.5-1.5); BG DEOXYHEMOGLOBIN 5.5 % (0.0-5.0); BG FRACTION INSPIRED OXYGEN 100; BG HCO3 ACT 21.5 mmol/L (22.0-26.0); BG METHEMOGLOBIN 0.3 % (0.0-1.5); BG OXYGEN SATURATION 94.5 % (92.0-98.5); BG PH 7.446 (7.350-7.450); BG PO2 70.6 mmHg (75.0-100.0); BG SAMPLE SITE RIGHT BRACHIAL; BG TOTAL HEMOGLOBIN 10.9 g/dL (12.0-18.0); BG VENT MODE VAPOTHERM
[2018-05-28] MEDS: FUROSEMIDE 40MG/4ML VIAL IVP SCH (09:16)
[2018-05-28] MEDS: MIDODRINE HCL 5MG TABLET PO SCH ×3 (09:17→17:32)
[2018-05-28] MEDS: FOLIC ACID/VITAMIN B COMP W-C TABLET PO SCH (09:17)
[2018-05-28] MEDS: DOCUSATE SODIUM 100MG CAPSULE PO SCH ×2 (09:18→17:32)
[2018-05-28 13:41] LABS: PLATELET ESTIMATE DECREASED
[2018-05-28] MEDS: EPOETIN ALFA 4000UNITS/ML VIAL SUBCUT SCH (21:01)
[2018-05-29] VITALS (12 sets, daily range): BP systolic 91–134; BP diastolic 56–75
[2018-05-29] MEDS: IPRATROPIUM/ALBUTEROL 0.5-3(2.5)MG/3ML NEB HHN SCH ×6 (01:53→21:27)
[2018-05-29] MEDS: LEVOTHYROXINE SODIUM 112MCG TABLET PO SCH (06:11)
[2018-05-29] MEDS: PIPERACILLIN/TAZ 2.25G PREMIX 50 ML IV SCH ×2 (06:11→17:47)
[2018-05-29] MEDS: SODIUM CHLORIDE 0.9% INJ 3ML FLUSH IVF SCH ×3 (06:11→21:05)
[2018-05-29 06:40] LABS: HEMATOCRIT. 29.7 % (42.0-52.0); HEMOGLOBIN. 9.5 g/dL (14.0-18.0); MEAN CORPUSCULAR HEMOGLOBIN 32.6 pg (28.0-32.0); MEAN PLATELET VOLUME 8.9 fl (7.4-10.4); PLATELET 106 x1000/uL (130-400); RED BLOOD CELL COUNT 2.91 mill/uL (4.7-6.1); RED CELL DISTRIBUTION WIDTH 19.2 % (11.6-14.6)
[2018-05-29 06:48] LABS: INR 3.1; PROTHROMBIN TIME 30.5 sec (9.1-11.1)
[2018-05-29 06:56] LABS: CHLORIDE 107 mEq/L (98-107)
[2018-05-29] MEDS: FOLIC ACID/VITAMIN B COMP W-C TABLET PO SCH (09:32)
[2018-05-29] MEDS: MIDODRINE HCL 5MG TABLET PO SCH ×3 (09:33→17:47)
[2018-05-29] MEDS: DOCUSATE SODIUM 100MG CAPSULE PO SCH ×2 (09:33→17:47)
[2018-05-29] MEDS: FUROSEMIDE 40MG/4ML VIAL IVP SCH (09:34)
[2018-05-29 11:15] LABS: BG CARBOXYHEMOGLOBIN 0.3 % (0.5-1.5); BG FRACTION INSPIRED OXYGEN 100; BG HCO3 ACT 24.3 mmol/L (22.0-26.0); BG METHEMOGLOBIN 0.4 % (0.0-1.5); BG OXYHEMOGLOBIN 93.3 % (94.0-97.0); BG PCO2 37.9 mmHg (35.0-45.0); BG PH 7.424 (7.350-7.450); BG PO2 73.5 mmHg (75.0-100.0); BG SAMPLE SITE RIGHT BRACHIAL; BG TOTAL HEMOGLOBIN 10.2 g/dL (12.0-18.0); BG VENT MODE VAPOTHERM
[2018-05-29] MEDS: POLYETHYLENE GLYCOL 3350 (17GM) 1 DOSE PACK PO SCH (13:48)
[2018-05-29 14:00] LABS: PLATELET ESTIMATE SLIGHTLY DECREASED
[2018-05-29] MEDS: DOBUTAMINE 250MG PREMIX 250 ML IV SCH ×2 (15:00→16:03)
[2018-05-29] MEDS ORDERED: PHYTONADIONE 10MG/ML AMP SUBCUT NR (20:00)
[2018-05-29] MEDS ORDERED: LACTULOSE 20G/30ML UDC PO PRN (21:00)
[2018-05-29] MEDS: ATORVASTATIN CALCIUM 20MG TABLET PO SCH (21:05)
[2018-05-30] VITALS (14 sets, daily range): BP systolic 85–135; BP diastolic 46–76
[2018-05-30] MEDS: IPRATROPIUM/ALBUTEROL 0.5-3(2.5)MG/3ML NEB HHN SCH ×6 (01:51→21:08)
[2018-05-30] MEDS: SODIUM CHLORIDE 0.9% INJ 3ML FLUSH IVF SCH ×3 (06:18→22:54)
[2018-05-30] MEDS: LEVOTHYROXINE SODIUM 112MCG TABLET PO SCH (06:19)
[2018-05-30] MEDS: DOBUTAMINE 250MG PREMIX 250 ML IV SCH (06:19)
[2018-05-30] MEDS: PIPERACILLIN/TAZ 2.25G PREMIX 50 ML IV SCH ×2 (06:19→18:00)
[2018-05-30 06:50] LABS: INR 2.7
[2018-05-30] MEDS: DOCUSATE SODIUM 100MG CAPSULE PO SCH ×2 (08:34→17:00)
[2018-05-30] MEDS: FUROSEMIDE 40MG/4ML VIAL IVP SCH (08:34)
[2018-05-30] MEDS: MIDODRINE HCL 5MG TABLET PO SCH ×3 (08:34→17:00)
[2018-05-30] MEDS: FOLIC ACID/VITAMIN B COMP W-C TABLET PO SCH (08:34)
[2018-05-30] MEDS: POLYETHYLENE GLYCOL 3350 (17GM) 1 DOSE PACK PO SCH (08:35)
[2018-05-30] MEDS ORDERED: PHYTONADIONE 5 MG/5ML ORAL SYRINGE PO SCH (11:00)
[2018-05-30] MEDS: GUAIFENESIN 200MG/10ML SUGAR FREE UDC PO PRN (12:55)
[2018-05-30 17:10] LABS: BG BASE EXCESS -1.8 mmol/L (-2.0-2.0); BG BILEVEL POS AIRWAY PRESSURE 15/5; BG CARBOXYHEMOGLOBIN 0.2 % (0.5-1.5); BG DEOXYHEMOGLOBIN 1.3 % (0.0-5.0); BG FRACTION INSPIRED OXYGEN 100; BG HCO3 ACT 22.7 mmol/L (22.0-26.0); BG METHEMOGLOBIN 0.3 % (0.0-1.5); BG OXYGEN SATURATION 98.7 % (92.0-98.5); BG OXYHEMOGLOBIN 98.2 % (94.0-97.0); BG PCO2 37.8 mmHg (35.0-45.0); BG PH 7.397 (7.350-7.450); BG PO2 138.8 mmHg (75.0-100.0); BG SAMPLE SITE RIGHT BRACHIAL; BG TOTAL HEMOGLOBIN 10.4 g/dL (12.0-18.0); BG VENT MODE MASK - BIPAP; BG VENT RATE 14 set
[2018-05-30] MEDS: ATORVASTATIN CALCIUM 20MG TABLET PO SCH (20:41)
[2018-05-31] VITALS (12 sets, daily range): BP systolic 86–120; BP diastolic 46–88
[2018-05-31] MEDS: IPRATROPIUM/ALBUTEROL 0.5-3(2.5)MG/3ML NEB HHN SCH ×7 (01:12→20:26)
[2018-05-31] MEDS: DOBUTAMINE 250MG PREMIX 250 ML IV SCH ×2 (01:14→17:17)
[2018-05-31] MEDS: SODIUM CHLORIDE 0.9% INJ 3ML FLUSH IVF SCH ×3 (06:24→22:00)
[2018-05-31] MEDS: PIPERACILLIN/TAZ 2.25G PREMIX 50 ML IV SCH ×2 (06:25→17:16)
[2018-05-31] MEDS: LEVOTHYROXINE SODIUM 112MCG TABLET PO SCH (06:25)
[2018-05-31 06:45] LABS: INR 1.9; PROTHROMBIN TIME 18.7 sec (9.1-11.1)
[2018-05-31 07:17] LABS: HEMATOCRIT. 29.4 % (42.0-52.0); HEMOGLOBIN. 9.5 g/dL (14.0-18.0); MEAN CORPUSCULAR HEMOGLOBIN 32.7 pg (28.0-32.0); MEAN CORPUSCULAR VOLUME 101.6 fL (80.0-94.0); MEAN PLATELET VOLUME 9.1 fl (7.4-10.4); PLATELET 114 x1000/uL (130-400); RED CELL DISTRIBUTION WIDTH 18.7 % (11.6-14.6)
[2018-05-31] MEDS: POLYETHYLENE GLYCOL 3350 (17GM) 1 DOSE PACK PO SCH (08:27)
[2018-05-31] MEDS: DOCUSATE SODIUM 100MG CAPSULE PO SCH ×2 (08:28→17:00)
[2018-05-31] MEDS: MIDODRINE HCL 5MG TABLET PO SCH ×3 (08:28→17:15)
[2018-05-31] MEDS: FOLIC ACID/VITAMIN B COMP W-C TABLET PO SCH (08:28)
[2018-05-31] MEDS: FUROSEMIDE 40MG/4ML VIAL IVP SCH (08:28)
[2018-05-31 10:44] LABS: BG CARBOXYHEMOGLOBIN 0.2 % (0.5-1.5); BG DEOXYHEMOGLOBIN 12.8 % (0.0-5.0); BG FRACTION INSPIRED OXYGEN 100; BG HCO3 ACT 20.7 mmol/L (22.0-26.0); BG METHEMOGLOBIN 0.2 % (0.0-1.5); BG OXYGEN SATURATION 87.1 % (92.0-98.5); BG OXYHEMOGLOBIN 86.8 % (94.0-97.0); BG PCO2 36.4 mmHg (35.0-45.0); BG PH 7.373 (7.350-7.450); BG PO2 56.1 mmHg (75.0-100.0); BG SAMPLE SITE LEFT BRACHIAL; BG TOTAL HEMOGLOBIN 10.5 g/dL (12.0-18.0); BG VENT MODE VAPOTHERM
[2018-05-31 12:52] LABS: PLATELET ESTIMATE SLIGHTLY DECREASED
[2018-05-31] MEDS ORDERED: VANCOMYCIN 750 MG PREMIX 150 ML IV NR (16:00)
[2018-05-31] MEDS: ATORVASTATIN CALCIUM 20MG TABLET PO SCH (20:58)
[2018-05-31] MEDS: EPOETIN ALFA 4000UNITS/ML VIAL SUBCUT SCH (20:58)
[2018-06-01] VITALS (27 sets, daily range): BP systolic 76–168; BP diastolic 41–98
[2018-06-01] MEDS: IPRATROPIUM/ALBUTEROL 0.5-3(2.5)MG/3ML NEB HHN SCH ×6 (01:19→21:44)
[2018-06-01] MEDS: SODIUM CHLORIDE 0.9% INJ 3ML FLUSH IVF SCH ×3 (06:01→22:55)
[2018-06-01] MEDS: LEVOTHYROXINE SODIUM 112MCG TABLET PO SCH (06:05)
[2018-06-01 06:34] LABS: INR 1.9; PROTHROMBIN TIME 18.9 sec (9.1-11.1)
[2018-06-01 06:39] LABS: HEMOGLOBIN. 9.9 g/dL (14.0-18.0); MEAN CORPUSCULAR HEMOGLOBIN 32.9 pg (28.0-32.0); MEAN CORPUSCULAR VOLUME 102.6 fL (80.0-94.0); MEAN PLATELET VOLUME 9.3 fl (7.4-10.4); PLATELET 117 x1000/uL (130-400); RED BLOOD CELL COUNT 3.02 mill/uL (4.7-6.1); RED CELL DISTRIBUTION WIDTH 18.5 % (11.6-14.6)
[2018-06-01] MEDS: DOCUSATE SODIUM 100MG CAPSULE PO SCH ×2 (08:24→17:39)
[2018-06-01] MEDS: FUROSEMIDE 40MG/4ML VIAL IVP SCH (08:24)
[2018-06-01] MEDS: FOLIC ACID/VITAMIN B COMP W-C TABLET PO SCH (08:24)
[2018-06-01] MEDS: POLYETHYLENE GLYCOL 3350 (17GM) 1 DOSE PACK PO SCH (08:24)
[2018-06-01] MEDS: MIDODRINE HCL 5MG TABLET PO SCH ×3 (08:25→17:40)
[2018-06-01] MEDS: GUAIFENESIN 200MG/10ML SUGAR FREE UDC PO PRN (08:26)
[2018-06-01] MEDS: DOBUTAMINE 250MG PREMIX 250 ML IV SCH (09:21)
[2018-06-01 09:59] LABS: BG BASE EXCESS -2.9 mmol/L (-2.0-2.0); BG CARBOXYHEMOGLOBIN 0.2 % (0.5-1.5); BG DEOXYHEMOGLOBIN 12.5 % (0.0-5.0); BG FRACTION INSPIRED OXYGEN 99.8; BG METHEMOGLOBIN 0.2 % (0.0-1.5); BG OXYGEN SATURATION 87.4 % (92.0-98.5); BG OXYHEMOGLOBIN 87.1 % (94.0-97.0); BG PCO2 33.3 mmHg (35.0-45.0); BG PH 7.418 (7.350-7.450); BG PO2 55.9 mmHg (75.0-100.0); BG SAMPLE SITE LEFT BRACHIAL; BG TOTAL HEMOGLOBIN 10.3 g/dL (12.0-18.0); BG VENT MODE VAPOTHERM
[2018-06-01 12:58] LABS: PLATELET ESTIMATE DECREASED
[2018-06-01] MEDS ORDERED: VANCOMYCIN 1250MG in DEXTROSE 5% WATER 250ML IV NR (18:00)
[2018-06-01] MEDS: ATORVASTATIN CALCIUM 20MG TABLET PO SCH (20:45)
[2018-06-01] MEDS ORDERED: LORAZEPAM 2MG/ML CPJ IV PRN (21:45)
[2018-06-02] VITALS (12 sets, daily range): BP systolic 83–118; BP diastolic 38–78
[2018-06-02] MEDS: IPRATROPIUM/ALBUTEROL 0.5-3(2.5)MG/3ML NEB HHN SCH ×6 (00:52→21:21)
[2018-06-02] MEDS: DOBUTAMINE 250MG PREMIX 250 ML IV SCH ×2 (02:38→19:49)
[2018-06-02 06:36] LABS: INR 1.9; PROTHROMBIN TIME 18.6 sec (9.6-11.0)
[2018-06-02] MEDS: SODIUM CHLORIDE 0.9% INJ 3ML FLUSH IVF SCH ×3 (06:38→21:51)
[2018-06-02] MEDS: LEVOTHYROXINE SODIUM 112MCG TABLET PO SCH (06:39)
[2018-06-02 07:19] LABS: HEMATOCRIT. 30.4 % (42.0-52.0); HEMOGLOBIN. 9.7 g/dL (14.0-18.0); MEAN CORPUSCULAR HEMOGLOBIN 32.5 pg (28.0-32.0); MEAN CORPUSCULAR VOLUME 102.6 fL (80.0-94.0); MEAN PLATELET VOLUME 9.2 fl (7.4-10.4); PLATELET 128 x1000/uL (130-400); RED BLOOD CELL COUNT 2.97 mill/uL (4.7-6.1); RED CELL DISTRIBUTION WIDTH 18.7 % (11.6-14.6)
[2018-06-02] MEDS: DOCUSATE SODIUM 100MG CAPSULE PO SCH ×2 (08:58→17:51)
[2018-06-02] MEDS: FUROSEMIDE 40MG/4ML VIAL IVP SCH (09:00)
[2018-06-02] MEDS: MIDODRINE HCL 5MG TABLET PO SCH ×3 (09:08→17:56)
[2018-06-02] MEDS: POLYETHYLENE GLYCOL 3350 (17GM) 1 DOSE PACK PO SCH (09:09)
[2018-06-02] MEDS: FOLIC ACID/VITAMIN B COMP W-C TABLET PO SCH (09:09)
[2018-06-02 13:43] LABS: PLATELET ESTIMATE SLIGHTLY DECREASED
[2018-06-02] MEDS: ATORVASTATIN CALCIUM 20MG TABLET PO SCH (21:45)
[2018-06-02] MEDS: EPOETIN ALFA 4000UNITS/ML VIAL SUBCUT SCH (21:55)
[2018-06-03] VITALS (12 sets, daily range): BP systolic 93–106; BP diastolic 49–69
[2018-06-03] MEDS: IPRATROPIUM/ALBUTEROL 0.5-3(2.5)MG/3ML NEB HHN SCH ×6 (00:39→20:36)
[2018-06-03] MEDS: SODIUM CHLORIDE 0.9% INJ 3ML FLUSH IVF SCH ×3 (06:29→21:58)
[2018-06-03] MEDS: LEVOTHYROXINE SODIUM 112MCG TABLET PO SCH (06:29)
[2018-06-03 07:21] LABS: INR 1.8; PROTHROMBIN TIME 18.2 sec (9.6-11.0)
[2018-06-03 07:44] LABS: HEMATOCRIT. 27.7 % (42.0-52.0); MEAN CORPUSCULAR HEMOGLOBIN 32.8 pg (28.0-32.0); MEAN CORPUSCULAR VOLUME 100.6 fL (80.0-94.0); MEAN PLATELET VOLUME 9.4 fl (7.4-10.4); PLATELET 131 x1000/uL (130-400); RED BLOOD CELL COUNT 2.75 mill/uL (4.7-6.1); RED CELL DISTRIBUTION WIDTH 18.3 % (11.6-14.6)
[2018-06-03] MEDS: FOLIC ACID/VITAMIN B COMP W-C TABLET PO SCH (08:01)
[2018-06-03] MEDS: POLYETHYLENE GLYCOL 3350 (17GM) 1 DOSE PACK PO SCH (08:01)
[2018-06-03] MEDS: DOCUSATE SODIUM 100MG CAPSULE PO SCH ×2 (08:03→18:03)
[2018-06-03] MEDS: MIDODRINE HCL 5MG TABLET PO SCH ×3 (08:04→18:03)
[2018-06-03] MEDS: FUROSEMIDE 40MG/4ML VIAL IVP SCH (08:06)
[2018-06-03 09:48] LABS: PLATELET ESTIMATE NORMAL
[2018-06-03] MEDS ORDERED: DOBUTAMINE 250MG PREMIX 250 ML IV SCH (10:50)
[2018-06-03] MEDS: ATORVASTATIN CALCIUM 20MG TABLET PO SCH (20:28)
[2018-06-03] MEDS: ASCORBIC ACID 250 MG TABLET PO SCH (20:28)
[2018-06-03] MEDS: EPOETIN ALFA 4000UNITS/ML VIAL SUBCUT SCH (21:59)
[2018-06-04] VITALS (15 sets, daily range): BP systolic 82–115; BP diastolic 40–85
[2018-06-04] MEDS: IPRATROPIUM/ALBUTEROL 0.5-3(2.5)MG/3ML NEB HHN SCH ×6 (00:25→20:52)
[2018-06-04] MEDS: SODIUM CHLORIDE 0.9% INJ 3ML FLUSH IVF SCH ×3 (05:16→21:07)
[2018-06-04] MEDS: LEVOTHYROXINE SODIUM 112MCG TABLET PO SCH (05:49)
[2018-06-04 06:46] LABS: HEMATOCRIT. 28.9 % (42.0-52.0); HEMOGLOBIN. 9.5 g/dL (14.0-18.0); MEAN CORPUSCULAR VOLUME 100.7 fL (80.0-94.0); MEAN PLATELET VOLUME 9.2 fl (7.4-10.4); PLATELET 147 x1000/uL (130-400); RED BLOOD CELL COUNT 2.87 mill/uL (4.7-6.1); RED CELL DISTRIBUTION WIDTH 18.5 % (11.6-14.6)
[2018-06-04 06:47] LABS: INR 1.8
[2018-06-04] MEDS ORDERED: DOBUTAMINE 250MG PREMIX 250 ML IV SCH (06:50)
[2018-06-04 08:25] LABS: PLATELET ESTIMATE NORMAL
[2018-06-04] MEDS: FOLIC ACID/VITAMIN B COMP W-C TABLET PO SCH (08:44)
[2018-06-04] MEDS: MIDODRINE HCL 5MG TABLET PO SCH ×3 (08:44→18:08)
[2018-06-04] MEDS: ASCORBIC ACID 250 MG TABLET PO SCH ×2 (08:44→20:10)
[2018-06-04] MEDS: ZINC SULFATE 220 MG ( 50 ) CAPSULE PO SCH (08:44)
[2018-06-04] MEDS: FUROSEMIDE 40MG/4ML VIAL IVP SCH (08:44)
[2018-06-04] MEDS: DOCUSATE SODIUM 100MG CAPSULE PO SCH ×2 (08:44→16:19)
[2018-06-04] MEDS: POLYETHYLENE GLYCOL 3350 (17GM) 1 DOSE PACK PO SCH (08:45)
[2018-06-04] MEDS: ATORVASTATIN CALCIUM 20MG TABLET PO SCH (20:10)
[2018-06-05] VITALS (18 sets, daily range): BP systolic 80–120; BP diastolic 33–56
[2018-06-05] MEDS: IPRATROPIUM/ALBUTEROL 0.5-3(2.5)MG/3ML NEB HHN SCH ×5 (01:08→20:48)
[2018-06-05] MEDS: SODIUM CHLORIDE 0.9% INJ 3ML FLUSH IVF SCH ×3 (05:04→21:05)
[2018-06-05] MEDS: LEVOTHYROXINE SODIUM 112MCG TABLET PO SCH (05:59)
[2018-06-05 06:58] LABS: INR 1.9; PROTHROMBIN TIME 18.9 sec (9.6-11.0)
[2018-06-05] MEDS ORDERED: SODIUM CHLORIDE 0.9% 250 ML IV ONE (07:30)
[2018-06-05 08:50] LABS: HEMATOCRIT. 30.3 % (42.0-52.0); HEMOGLOBIN. 9.7 g/dL (14.0-18.0); MEAN CORPUSCULAR HEMOGLOBIN 32.5 pg (28.0-32.0); MEAN CORPUSCULAR VOLUME 101.9 fL (80.0-94.0); MEAN PLATELET VOLUME 10.1 fl (7.4-10.4); PLATELET 117 x1000/uL (130-400); RED BLOOD CELL COUNT 2.97 mill/uL (4.7-6.1); RED CELL DISTRIBUTION WIDTH 19.2 % (11.6-14.6)
[2018-06-05] MEDS: MIDODRINE HCL 5MG TABLET PO SCH ×3 (09:18→17:51)
[2018-06-05] MEDS: DOCUSATE SODIUM 100MG CAPSULE PO SCH ×2 (09:18→17:51)
[2018-06-05] MEDS: POLYETHYLENE GLYCOL 3350 (17GM) 1 DOSE PACK PO SCH (09:18)
[2018-06-05] MEDS: ZINC SULFATE 220 MG ( 50 ) CAPSULE PO SCH (09:18)
[2018-06-05] MEDS: ASCORBIC ACID 250 MG TABLET PO SCH ×2 (09:18→21:05)
[2018-06-05] MEDS: FOLIC ACID/VITAMIN B COMP W-C TABLET PO SCH (09:18)
[2018-06-05 12:59] LABS: PLATELET ESTIMATE DECREASED
[2018-06-05] MEDS: EPOETIN ALFA 4000UNITS/ML VIAL SUBCUT SCH (21:05)
[2018-06-05] MEDS: ATORVASTATIN CALCIUM 20MG TABLET PO SCH (21:05)
[2018-06-06] VITALS: BP 101/42
[2018-06-06] MEDS: IPRATROPIUM/ALBUTEROL 0.5-3(2.5)MG/3ML NEB HHN SCH ×2 (00:21→04:44)
[2018-06-06 02:00] VITALS: BP 82/51
[2018-06-06 04:00] VITALS: BP 89/53
[2018-06-06 06:00] VITALS: BP 57/23
[2018-06-06] MEDS: SODIUM CHLORIDE 0.9% INJ 3ML FLUSH IVF SCH (06:03)
[2018-06-06 07:00] LABS: INR 1.8; PROTHROMBIN TIME 18.1 sec (9.6-11.0)
== END 2018-06-06 10:34 | disposition expired | DRG 291 ==
LOC: ER 15:48 → EDBEDREQ 18:57 → EDBEDREQSVC 18:57 → ENRESERV 05-24 19:06 → 3WST 05-24 20:47
PROVIDERS: ADMIT Internal Medicine; ATTEND Internal Medicine
PROC: 5A09457 Assistance with Respiratory Ventilation, 24-96 Consecutive Hours, Continuous Positive Airway Pressure (ICD-10-PCS; principal; 2018-05-23)
PROC: 5A1D70Z Performance of Urinary Filtration, Intermittent, Less than 6 Hours Per Day (ICD-10-PCS; 2018-05-24)
PROC: 02HV33Z Insertion of Infusion Device into Superior Vena Cava, Percutaneous Approach (ICD-10-PCS; 2018-05-26)
PROC: B548ZZA Ultrasonography of Superior Vena Cava, Guidance (ICD-10-PCS; 2018-05-26)
PROC: 5A1D70Z Performance of Urinary Filtration, Intermittent, Less than 6 Hours Per Day (ICD-10-PCS; 2018-05-26)
PROC: 5A09357 Assistance with Respiratory Ventilation, Less than 24 Consecutive Hours, Continuous Positive Airway Pressure (ICD-10-PCS; 2018-05-26)
PROC: 5A1D70Z Performance of Urinary Filtration, Intermittent, Less than 6 Hours Per Day (ICD-10-PCS; 2018-05-27)
PROC: 5A09357 Assistance with Respiratory Ventilation, Less than 24 Consecutive Hours, Continuous Positive Airway Pressure (ICD-10-PCS; 2018-05-27)
PROC: 5A1D70Z Performance of Urinary Filtration, Intermittent, Less than 6 Hours Per Day (ICD-10-PCS; 2018-05-28)
PROC: 5A09357 Assistance with Respiratory Ventilation, Less than 24 Consecutive Hours, Continuous Positive Airway Pressure (ICD-10-PCS; 2018-05-29)
PROC: 5A09457 Assistance with Respiratory Ventilation, 24-96 Consecutive Hours, Continuous Positive Airway Pressure (ICD-10-PCS; 2018-05-29)
PROC: 5A1D70Z Performance of Urinary Filtration, Intermittent, Less than 6 Hours Per Day (ICD-10-PCS; 2018-05-30)
PROC: 5A09357 Assistance with Respiratory Ventilation, Less than 24 Consecutive Hours, Continuous Positive Airway Pressure (ICD-10-PCS; 2018-05-31)
PROC: 5A1D70Z Performance of Urinary Filtration, Intermittent, Less than 6 Hours Per Day (ICD-10-PCS; 2018-06-01)
PROC: 5A09557 Assistance with Respiratory Ventilation, Greater than 96 Consecutive Hours, Continuous Positive Airway Pressure (ICD-10-PCS; 2018-06-01)
PROC: 5A1D70Z Performance of Urinary Filtration, Intermittent, Less than 6 Hours Per Day (ICD-10-PCS; 2018-06-02)
PROC: 5A1D70Z Performance of Urinary Filtration, Intermittent, Less than 6 Hours Per Day (ICD-10-PCS; 2018-06-04)
DX: I13.2 Hypertensive heart and chronic kidney disease with heart failure and with stage 5 chronic kidney disease, or end stage renal disease (principal); J18.1 Lobar pneumonia, unspecified organism; J96.01 Acute respiratory failure with hypoxia; I50.23 Acute on chronic systolic (congestive) heart failure; L89.153 Pressure ulcer of sacral region, stage 3; N18.6 End stage renal disease; N17.9 Acute kidney failure, unspecified; J44.1 Chronic obstructive pulmonary disease with (acute) exacerbation; I48.92 Unspecified atrial flutter; J44.0 Chronic obstructive pulmonary disease with (acute) lower respiratory infection; N39.0 Urinary tract infection, site not specified; Z66 Do not resuscitate; I25.5 Ischemic cardiomyopathy; D63.8 Anemia in other chronic diseases classified elsewhere; M10.9 Gout, unspecified; D69.6 Thrombocytopenia, unspecified; E03.9 Hypothyroidism, unspecified; E78.00 Pure hypercholesterolemia, unspecified; E78.5 Hyperlipidemia, unspecified; E87.5 Hyperkalemia; F17.210 Nicotine dependence, cigarettes, uncomplicated; I25.10 Atherosclerotic heart disease of native coronary artery without angina pectoris; I27.20 Pulmonary hypertension, unspecified; I48.0 Paroxysmal atrial fibrillation; I48.2 Chronic atrial fibrillation; I73.9 Peripheral vascular disease, unspecified; I95.89 Other hypotension; I35.0 Nonrheumatic aortic (valve) stenosis; R57.0 Cardiogenic shock; Z16.24 Resistance to multiple antibiotics; Z79.01 Long term (current) use of anticoagulants; Z79.899 Other long term (current) drug therapy; Z82.49 Family history of ischemic heart disease and other diseases of the circulatory system; Z99.81 Dependence on supplemental oxygen; Z99.2 Dependence on renal dialysis; Z95.5 Presence of coronary angioplasty implant and graft; Z95.810 Presence of automatic (implantable) cardiac defibrillator
CPT/HCPCS: 36415; 36569; 36600; 71045; 71250; 76937; 80048; 80202; 80305; 80320; 82375; 82550; 82553; 82805; 82962; 83735; 83880; 83970; 84100; 84134; 84443; 84484; 85379; 87804; 93005; 93970; 94640; 94660; 96365; 96366; 96367; 96375; 99285; A6261; C1725; J0696; J0885; J1250; J1265; J1940; J2060; J2405; J2543; J3370; J3430; J3490; J7040; J7050; J7060; J7620; P9047; G0480